=== PATIENT | female | born 1945 | race Caucasian/White ===

== ENCOUNTER 2019-10-21 13:55 | Inpatient (IN) | payer MEDICARE ==
[2019-10-21] MEDS ORDERED: Cefepime 2 GM VIAL ONE (14:32)
[2019-10-21 14:33] LABS: Base Excess-Venous 1.3 mmol/L (-2.0 to 3.0); Bicarbonate (HCO3v) 26.7 mmol/L (22.0-28.0); CO2 Tension (PvCO2) 44.5 mmHg (40.0-50.0); Calcium, Ionized 1.15 mmol/L (See Comments:); Chloride 98 mmol/L (98-107); Hemoglobin - Calc 11.1 g/dL (12.0-16.0); Potassium 4.7 mmol/L (3.5-5.1); Sodium 134 mmol/L (138-145); vO2 Saturation-calc 63.6 % (60.0-85.0)
--- NOTE | 2019-10-21 14:39 | RAD ---
RADIOGRAPH CHEST 1 VIEW: DATE: 10/21/2019 TIME: 2:05 PM HISTORY: 74-year-old female with cough, dyspnea, and wheezing COMPARISON: none FINDINGS: Hyperinflation of lungs. Hyperlucency of upper lobes. Prominent interstitial markings at lower lung z ones, greatest at right base, acute versus chronic. Favor chronic. No cardiomegaly. Left subclavian dual lead pacemaker. No pneumothorax. IMPRESSION: 1) emphysema. 2) increased attenuation at right lower lung zone, chronic versus acute. Favor chronic. 3) pacemaker
[2019-10-21 14:42] LABS: #Eosinphils 0.2 thou/uL (0.0-0.7); #Monocytes 0.6 thou/uL (0.11-0.59); #Neutrophils 6.1 thou/uL (1.40-6.50); %Basophils 0.2 % (0.0-1.0); %Eosinophils 2.7 % (0.0-10.0); %Lymphocytes 22.2 % (21.0-51.0); %Monocytes 6.3 % (0.0-10.0); %Neutrophils 68.6 % (42.0-75.0); Hemoglobin 11.1 g/dL (12.0-16.0); Mean Corpuscular HGB CONC 33.3 g/dL (32.0-36.0); Mean Corpuscular Hemoglobin 33.1 pg (27.0-31.0); Mean Corpuscular Volume 99.3 fL (78.0-98.0); Mean Platelet Volume 7.5 fL (7.4-10.4); Platelet Count 361 thou/uL (130-400); RBC Distribution Width 11.6 % (11.5-14.5); Red Blood Cell (RBC) Count 3.34 mill/uL (4.20-5.40); White Blood Cell (WBC) Count 8.9 thou/uL (4.8-10.8)
[2019-10-21] MEDS ORDERED: Insulin Regular 300 UNITS/3 ML VIAL ONE (15:02)
[2019-10-21] MEDS ORDERED: Vancomycin 1 GM/200 ML BAG ONE (15:02)
[2019-10-21 15:03] LABS: ALT (SGPT) 14 U/L (8-55); AST (SGOT) 13 U/L (5-34); Albumin 3.9 g/dL (3.4-4.8); Alkaline Phosphatase 107 U/L (40-110); Anion Gap 15 mmol/L (10-20); BUN (Urea Nitrogen) 26 mg/dL (9.8-20.1); Bilirubin, Total 0.2 mg/dL (0.2-1.2); Calc. Creatinine Clearance 0 mL/min (70-130); Calcium 9.5 mg/dL (7.8-10.44); Carbon Dioxide 27 mmol/L (23-31); Chloride 98 mmol/L (98-107); Estimated GFR-MDRD 26; Globulin 2.8 g/dL (2.4-3.5); Glucose 539 mg/dL (83-110); Potassium 5.1 mmol/L (3.5-5.1); Protein, Total 6.7 g/dL (6.0-8.3); Sodium 135 mmol/L (136-145)
[2019-10-21] MEDS ORDERED: Senokot S 8.6-50 MG TAB PO PRN (16:03)
[2019-10-21] MEDS ORDERED: Acetaminophen 325 MG TAB PO PRN (16:03)
[2019-10-21] MEDS ORDERED: Dextrose 50% Abboject 50 ML SYRINGE SLOW IVP PRN (16:06)
[2019-10-21] MEDS ORDERED: Dextrose 5% in Water 1,000 ML IV PRN (16:06)
[2019-10-21 16:09] LABS: Bilirubin Negative (Negative); Blood, Urine Negative (Negative); Clarity Clear (Clear); Glucose, Urine (Dipstick) Greater than 1000 mg/dL (Negative); Leukocyte Negative Leu/uL (Negative); Nitrite Negative (Negative); Protein, Urine (Dipstick) Negative (Neg-Trace); Urobilinogen Normal mg/dL (Less than 2)
[2019-10-21] MEDS ORDERED: Azithromycin 500 MG in Sodium Chloride 0.9% 250 ML 250 ML IVPB SCH (18:00)
[2019-10-21 19:36] VITALS: BMI 22.4
--- NOTE | 2019-10-21 21:43 | HP ---
CHIEF COMPLAINT: Shortness of breath. HISTORY OF PRESENT ILLNESS: The patient is a very pleasant 74-year-old female who is from out of town, who presents to the hospital with worsening shortness of breath since Tuesday. The patient states that she normally lives in [place], traveled in September to stay with her daughter for a few months. She stated that Tuesday she started having significant amount of shortness of breath and some coughing. At this time, she went to the urgent care, who gave her some steroids and antibiotics and sent her home. She stated then she came back again on Tuesday morning to the Urgent Care complaining of worsening symptoms. At this time, she was given a steroid inhaler, however, she was unable to fill it. However, today the patient started having significant amount of shortness of breath, cough, and at this time, the patient's daughter initially drove her to the ER; however, while she was driving, her symptoms got so severe that she had stopped by a fire station and was brought in via EMS. The patient states that she has been using 2 L of oxygen only at nighttime. She continues to smoke about half a pack a day. PAST MEDICAL HISTORY: She has a history of hypertension, diabetes, and COPD. PAST SURGICAL HISTORY: She has had a left hip replacement, pacemaker. She has eye surgery. She has a bladder lift and back surgery. SOCIAL HISTORY: She has no alcohol use. Smoking, she smokes half a pack a day. No recreational drug use. ALLERGIES: SHE IS ALLERGIC TO CODEINE. SHE GETS A RASH. FAMILY HISTORY: Mother at age of 49 and father at the age of 69 with heart disease. REVIEW OF SYSTEMS: All negative except for the ones mentioned above. MEDICATIONS: She is on: 1. Carvedilol 12.5 twice a day. 2. Januvia 25 mg daily. 3. Breo inhaler one twice a day. 4. Amlodipine 10 mg daily. 5. Aspirin 81 mg daily. 6. Omeprazole 20 mg daily. 7. Ranitidine 150 mg daily. 8. Torsemide 20 mg daily. 9. Lisinopril 2.5 mg daily. 10. Escitalopram 20 mg daily. 11. Buspirone 10 mg daily. 12. Atorvastatin 40 mg daily. PHYSICAL EXAMINATION: VITAL SIGNS: As of the following; her temperature is 98.6, respirations of 18 to 20, pulse of 100, blood pressure 122/67, 93% on 2 L. GENERAL: She is awake, alert, and oriented x3. Does not appear in distress. HEENT: Normocephalic and atraumatic. No lymphadenopathy noted. Pupils equal and reactive to light. CV: S1 and S2 present. No murmurs, rubs, or gallops. LUNGS: She has some mild expiratory wheezing all over with diminished breath sounds. ABDOMEN: Soft and nontender. Bowel sounds are present x2. EXTREMITIES: She has lower extremity pitting edema. LABORATORY RESULTS: As of the following; WBCs of 8.9, hemoglobin of 11.1, hematocrit of 33.2, platelets of 361. Chemistry; sodium of 134, potassium of 4.7, BUN of 26, creatinine of 1.88. Her sugar was 539. Her BNP was 101.6. She did have a chest x-ray, which stated hyperinflated lungs and increased atelectasis in the right lower lung zone, chronic versus acute I am unable to say and also she has a pacemaker. ASSESSMENT AND PLAN: The patient is a very pleasant 74-year-old female, who presents to the hospital with shortness of breath. 1. Shortness of breath could be possibly secondary to chronic obstructive pulmonary disease exacerbation versus pneumonia. She does not have an elevated white count; however, her symptoms are consistent with possible chronic obstructive pulmonary disease exacerbation. At this time, her flu was negative. We will start her on some ceftriaxone and azithromycin since she was on Levaquin before. I will also start her on some IV steroids and also DuoNeb q.4 hours around the clock. We will continue her home medications. 2. Mild acute kidney injury, unknown previous creatinine. She does not have any history of any kidney disease. We will hydrate her a little bit and check some labs in the morning to see if this improves. 3. Diabetes, uncontrolled. We will put her on sliding scale insulin and continue to monitor. 4. Deep venous thrombosis prophylaxis. We will put the patient on subcu Lovenox. Job ID: [id number]
[2019-10-21] MEDS: Sodium Chloride 0.9% 1,000 ML IV SCH (22:08)
[2019-10-21] MEDS: cefTRIAXone\\ROCEPHIN 1 GM in Sodium Chloride 0.9% 100 ML IVPB SCH (22:12)
[2019-10-21] MEDS: Atorvastatin Calcium 40 MG TAB PO SCH (22:13)
[2019-10-21] MEDS: HumaLOG 300 UNITS/3 ML VIAL SC PRN (22:16)
[2019-10-21] MEDS ORDERED: Melatonin 3 MG TAB PO PRN (22:53)
[2019-10-21] MEDS ORDERED: busPIRone HCl 5 MG TAB PO SCH (23:00)
[2019-10-21] MEDS: Azithromycin 500 MG in Sodium Chloride 0.9% 250 ML 250 ML IVPB SCH (23:27)
[2019-10-22] MEDS: HumaLOG 300 UNITS/3 ML VIAL SC PRN ×3 (04:36→20:30)
[2019-10-22 05:47] LABS: #Lymphocytes 1.1 thou/uL (1.20-3.40); #Monocytes 0.5 thou/uL (0.11-0.59); #Neutrophils 8.1 thou/uL (1.40-6.50); %Basophils 0.2 % (0.0-1.0); %Eosinophils 0.1 % (0.0-10.0); %Lymphocytes 11.1 % (21.0-51.0); %Monocytes 4.8 % (0.0-10.0); %Neutrophils 83.8 % (42.0-75.0); Hemoglobin 10.1 g/dL (12.0-16.0); Mean Corpuscular HGB CONC 33.3 g/dL (32.0-36.0); Mean Corpuscular Hemoglobin 32.9 pg (27.0-31.0); Mean Corpuscular Volume 98.6 fL (78.0-98.0); Mean Platelet Volume 7.5 fL (7.4-10.4); Platelet Count 356 thou/uL (130-400); RBC Distribution Width 11.4 % (11.5-14.5); Red Blood Cell (RBC) Count 3.08 mill/uL (4.20-5.40); White Blood Cell (WBC) Count 9.6 thou/uL (4.8-10.8)
[2019-10-22 06:14] LABS: Anion Gap 11 mmol/L (10-20); BUN (Urea Nitrogen) 25 mg/dL (9.8-20.1); Calc. Creatinine Clearance 33 mL/min (70-130); Calcium 9.1 mg/dL (7.8-10.44); Carbon Dioxide 25 mmol/L (23-31); Chloride 105 mmol/L (98-107); Estimated GFR-MDRD 34; Glucose 270 mg/dL (83-110); Sodium 136 mmol/L (136-145)
[2019-10-22] MEDS ORDERED: methylPREDNISolone Sod Succ 40 MG VIAL IVP SCH (09:00)
[2019-10-22] MEDS ORDERED: busPIRone HCl 10 MG TAB PO SCH (09:00)
[2019-10-22] MEDS: Saccharomyces boulardii 250 MG CAP PO SCH (09:05)
[2019-10-22] MEDS: Enoxaparin Sodium 40 MG/0.4 ML SYRINGE SC SCH (09:06)
[2019-10-22] MEDS: Aspirin 81 mg Enteric Coated Tablet PO SCH (09:06)
[2019-10-22] MEDS: Escitalopram Oxalate 20 mg Tablet PO SCH (09:06)
[2019-10-22] MEDS: busPIRone HCl 5 MG TAB PO SCH ×2 (09:06→20:26)
--- NOTE | 2019-10-22 10:08 | PDOC.HOSPP ---
- Subjective Encounter Date: 10/22/19 Encounter Time: 11:10 Subjective: Patient with SOB and cough, improved some from yesterday. Sating well on 2L NC O2. No other complaints. - Objective Vital Signs & Weight: Vital Signs (12 hours) Temp Pulse Resp BP Pulse Ox 10/22/19 07:41 97.6 F 91 18 133/61 95 10/22/19 06:58 87 16 10/22/19 05:14 98.1 F 89 18 121/61 94 L 10/22/19 02:48 83 16 92 L 10/22/19 00:15 97.9 F 85 20 119/66 92 L 10/21/19 22:44 89 18 94 L Weight Weight 135 lb I&O: 10/21/19 10/22/19 10/23/19 06:59 06:59 06:59 Intake Total 760 Balance 760 Result Diagrams: 10/22/19 05:25 10/22/19 05:25 Additional Labs: Accuchecks 10/21/19 10/21/19 10/21/19 20:06 16:16 15:01 POC Glucose 437 H 451 H 543 H Hospitalist ROS - Review of Systems Constitutional: denies: fever, chills Respiratory: reports: cough, shortness of breath Cardiovascular: denies: chest pain, palpitations, orthopnea Gastrointestinal: denies: nausea, vomiting, abdominal pain - Medication Medications: Active Medications Generic Name Dose Route Start Last Admin Trade Name Freq PRN Reason Stop Dose Admin Acetaminophen 650 mg 10/21/19 16:03 10/22/19 09:12 Tylenol PO 650 mg Q4H PRN Administration Headache/Fever/Mild Pain (1-3) Albuterol/Ipratropium 3 ml 10/21/19 18:30 10/22/19 06:58 Duoneb NEB 3 ml [id number] BONITA Administration Aspirin 81 mg 10/22/19 09:00 10/22/19 09:06 Ecotrin PO 81 mg DAILY BONITA Administration Atorvastatin Calcium 40 mg 10/21/19 21:00 10/21/19 22:13 Lipitor PO 40 mg HS BONITA Administration Buspirone HCl 5 mg 10/22/19 09:00 10/22/19 09:06 Buspar PO 5 mg BID BONITA Administration Enoxaparin Sodium 40 mg 10/22/19 09:00 10/22/19 09:06 Lovenox SC 40 mg 0900 BONITA Administration Escitalopram Oxalate 20 mg 10/22/19 09:00 10/22/19 09:06 Lexapro PO 20 mg DAILY BONITA Administration Sodium Chloride 1,000 mls @ 50 mls/hr 10/21/19 17:00 10/21/19 22:08 Normal Saline 0.9% IV 1,000 mls .Q20H BONITA Administration Ceftriaxone Sodium 1 gm/ 100 mls @ 200 mls/hr 10/21/19 20:00 10/21/19 22:12 Sodium Chloride IVPB 100 mls 2000 BONITA Administration Azithromycin 500 mg/ Sodium 250 mls @ 250 mls/hr 10/21/19 23:00 10/21/19 23: 27 Chloride IVPB 250 mls 2300 BONITA Administration Insulin Human Lispro 0 units 10/21/19 16:06 10/22/19 04:36 Humalog SC 6 unit .MODERATE SLIDING SC PRN Administration Moderate Correctional Scale Melatonin 9 mg 10/21/19 22:53 10/21/19 23:26 Melatonin PO 9 mg HS PRN Administration Insomnia Methylprednisolone Sodium Succinate 40 mg 10/22/19 09:00 10/22/19 09:07 Solu-Medrol IVP 40 mg DAILY BONITA Administration Pantoprazole Sodium 40 mg 10/22/19 09:00 10/22/19 09:05 Protonix PO 40 mg DAILY BONITA Administration Saccharomyces Boulardii 250 mg 10/22/19 09:00 10/22/19 09:05 Florastor PO 250 mg DAILY BONITA Administration - Exam General Appearance: NAD, awake alert ENT: moist mucosa Heart: RRR, no murmur, no gallops, no rubs Respiratory - other findings: poor air movement throughout, no focal findings, productive cough Gastrointestinal: soft, non-tender, non-distended, normal bowel sounds Psychiatric: normal affect, normal behavior Hosp A/P (1) COPD with exacerbation Code(s): J44.1 - CHRONIC OBSTRUCTIVE PULMONARY DISEASE W (ACUTE) EXACERBATION Status: Acute (2) Acute on chronic respiratory failure with hypoxia Code(s): J96.21 - ACUTE AND CHRONIC RESPIRATORY FAILURE WITH HYPOXIA Status: Acute (3) Tobacco abuse Code(s): Z72.0 - TOBACCO USE Status: Acute (4) HTN (hypertension) Code(s): I10 - ESSENTIAL (PRIMARY) HYPERTENSION Status: Chronic (5) Diabetes mellitus type 2 in nonobese Code(s): E11.9 - TYPE 2 DIABETES MELLITUS WITHOUT COMPLICATIONS Status: Chronic - Plan Patient weaned to 1L O2 via NC On steroids, nebs, abx. Creatinine improving some, cont hold JERRY-I and diuretic for now DVT proph: Lovenox
--- NOTE | 2019-10-22 14:43 | PDOC.EVN ---
Event Note - Event Note Event Note: Patient with increased cough and SOB. Sats into 80s, neb given and O2 increased to 3L, still sating 85%. Tachycardic to 120s. XR, ABG, EKG ordered. Switch to facemask O2. Spoke with Dr. Arreola and he will consult on the patient. Concern for mucus plugging. If patient doesn't do well on the O2 facemask will need to transfer to [facility].
[2019-10-22 14:48] LABS: Actual Bicarbonate (HCO3a) 21.8 mEq/L (22-28); Base Excess (BEa) -3.4 mEq/L (-2.0 to +3.0); Calcium, Ionized 1.19 mmol/L (1.12-1.30); Carboxyhemoglobin (COHb) 0.5 gm% (0.0-3.0); Hemoglobin (Hb) 10.8 g/dL (12.0-16.0); O2 Tension (PaO2) 75.7 mmHg (> 70.0); Potassium - ABG Lab 4.75 mmol/L (3.70-5.30); pH, Arterial 7.36 (7.35-7.45)
[2019-10-22 15:08] LABS: Puncture Site RRA
--- NOTE | 2019-10-22 15:13 | RAD ---
XR Chest 1 View Portable HISTORY: Shortness of breath, hypoxia COMPARISON: 11/02/2019 FINDINGS: The heart size is normal. Left-sided Port-A-Cath remains in place. The aorta is tortuous. T he lungs are well expanded without focal areas of consolidation, pneumothorax or pleural effusions. IMPRESSION: No radiographic evidence of acute cardiopulmonary process.
--- NOTE | 2019-10-22 18:27 | CON ---
DATE OF CONSULTATION: 10/22/2019 HISTORY OF PRESENT ILLNESS: Tess Paz is a 74-year-old female, who was admitted with COPD exacerbation. She was smoking until Tuesday. This morning, she had an episode where she was coughing, then could not catch her breath, became very tachypneic and admittedly panicked. She is back near her baseline now. PAST MEDICAL HISTORY: Remarkable for diabetes, hypertension, COPD, left hip replacement, pacemaker, bladder suspension, and back surgery in the past. SOCIAL HISTORY: She smokes half pack a day up until Tuesday. She is not a daily drinker. She does not use drugs. ALLERGIES: REPORTS ALLERGIES TO CODEINE. FAMILY HISTORY: Positive for vascular disease. Negative for lung disease in early age. REVIEW OF SYSTEMS: Review of systems of 10 points is otherwise negative. PHYSICAL EXAMINATION: VITAL SIGNS: She is afebrile, heart rate is 112, respiratory rate is 19, oxymetry is 96% on 3 L, blood pressure 153/70. HEAD AND NECK: Unremarkable. LUNGS: Remarkable for distant breath sounds. Her expiratory phase now is not prolonged, but was earlier per my discussion with Respiratory Therapy. HEART: Regular rhythm. S1 and S2 are normal. ABDOMEN: Soft and nontender. EXTREMITIES: Without clubbing, cyanosis, or edema. NEUROLOGIC: Nonfocal. LABORATORY DATA: White count 9.6 today, hemoglobin 10.1, platelets 356. Electrolytes are normal. BUN 25, creatinine 1.5. Glucose was 543 yesterday. IMPRESSION: Chronic obstructive pulmonary disease exacerbation, probably aggravated by coughing spell, now resolving. Moving her to the intermediate care unit is reasonable. I do not believe she needs BiPAP at this time. I will be happy to follow with the other physicians caring for her. This is a 70 min consult with greater than 50% of time spent on coordination of care. Job ID: [id number] [facility]
[2019-10-22] MEDS: cefTRIAXone\\ROCEPHIN 1 GM in Sodium Chloride 0.9% 100 ML IVPB SCH (20:26)
[2019-10-22] MEDS: Atorvastatin Calcium 40 MG TAB PO SCH (20:26)
[2019-10-22] MEDS: guaiFENesin ER 600 MG TAB PO SCH (20:26)
[2019-10-22] MEDS: Carvedilol 6.25 MG TAB PO SCH (20:26)
[2019-10-22] MEDS: Dicyclomine 10 MG CAP PO SCH (20:27)
[2019-10-22] MEDS ORDERED: Non-Formulary Item 1 EACH (Carvedilol [Carvedilol] 12.5 MG) PO SCH (21:00)
[2019-10-22] MEDS: Sodium Chloride 0.9% 1,000 ML IV SCH (23:09)
[2019-10-22] MEDS: Azithromycin 500 MG in Sodium Chloride 0.9% 250 ML 250 ML IVPB SCH (23:09)
[2019-10-23] MEDS: HumaLOG 300 UNITS/3 ML VIAL SC PRN ×3 (06:04→20:23)
[2019-10-23] MEDS ORDERED: Non-Formulary Item 1 EACH (Ranitidine Hcl [Ranitidine Hcl] 150 MG) PO SCH (09:00)
--- NOTE | 2019-10-23 09:40 | PRG ---
DATE OF SERVICE: 10/23/2019 SUBJECTIVE: Ms. Paz woke up feeling a little more short of breath. She is sitting upright in bed, waiting for nebulizer treatment. OBJECTIVE: VITAL SIGNS: Blood pressure 170/75, heart rate 87, respiratory rates in the 20s, oximetry is 97. LUNGS: Remarkable for faint wheezes with slightly prolonged expiratory phase. HEART: Regular rhythm. ABDOMEN: Soft, nontender. EXTREMITIES: Without edema. No new lab other than glucose today. IMPRESSION: 1. Chronic obstructive pulmonary disease exacerbation, slowly improving. 2. Tobacco use up until Tuesday. 3. Anxiety as expected with her chronic obstructive pulmonary disease exacerbation. PLAN: Continue with nebulizers treatments but we will increase the frequency. We will increase her IV steroids. We will increase her IV fluids as well. Job ID: [id number]
[2019-10-23] MEDS: Sodium Chloride 0.9% 1,000 ML IV SCH ×2 (09:46→18:32)
[2019-10-23] MEDS: busPIRone HCl 5 MG TAB PO SCH ×2 (09:46→20:17)
[2019-10-23] MEDS: Aspirin 81 mg Enteric Coated Tablet PO SCH (09:46)
[2019-10-23] MEDS: Saccharomyces boulardii 250 MG CAP PO SCH (09:46)
[2019-10-23] MEDS: Carvedilol 6.25 MG TAB PO SCH ×2 (09:46→20:17)
[2019-10-23] MEDS: Amlodipine 10 MG TAB PO SCH (09:47)
[2019-10-23] MEDS: guaiFENesin ER 600 MG TAB PO SCH ×2 (09:47→20:17)
[2019-10-23] MEDS: Enoxaparin Sodium 40 MG/0.4 ML SYRINGE SC SCH (09:47)
[2019-10-23] MEDS: Dicyclomine 10 MG CAP PO SCH ×2 (09:47→20:18)
[2019-10-23] MEDS: Famotidine 20 MG TAB PO SCH (09:47)
[2019-10-23] MEDS: Montelukast Sodium 10 mg Tablet PO SCH (09:47)
[2019-10-23] MEDS: Escitalopram Oxalate 20 mg Tablet PO SCH (09:47)
--- NOTE | 2019-10-23 09:47 | PDOC.HOSPP ---
- Subjective Encounter Date: 10/23/19 Encounter Time: 10:40 Subjective: Patient with some worse SOB this AM, better now after increased nebs and steroids. No other complaints. - Objective Vital Signs & Weight: Vital Signs (12 hours) Temp Pulse Resp Pulse Ox 10/23/19 08:00 94 L 10/23/19 07:47 97 10/23/19 07:46 87 23 H 97 10/23/19 07:30 97.8 F 10/23/19 03:35 97.6 F 10/23/19 02:38 83 25 H 94 L 10/22/19 23:37 97.2 F L 10/22/19 22:26 72 27 H 97 Weight Weight 135 lb Most Recent Monitor Data Heart Rate from ECG 94 NIBP 169/76 NIBP BP-Mean 107 Respiration from ECG 23 SpO2 96 I&O: 10/22/19 10/23/19 10/24/19 06:59 06:59 06:59 Intake Total 760 1306 Output Total 500 Balance 760 806 Result Diagrams: 10/22/19 05:25 10/22/19 05:25 Additional Labs: Accuchecks 10/23/19 10/22/19 10/22/19 05:56 20:04 16:52 POC Glucose 198 H 351 H 328 H 10/22/19 10/22/19 11:53 04:33 POC Glucose 274 H 292 H Hospitalist ROS - Review of Systems Constitutional: denies: fever, chills Respiratory: reports: cough, shortness of breath Cardiovascular: denies: chest pain, palpitations Gastrointestinal: denies: nausea, vomiting, abdominal pain - Medication Medications: Active Medications Generic Name Dose Route Start Last Admin Trade Name Freq PRN Reason Stop Dose Admin Acetaminophen 650 mg 10/21/19 16:03 10/22/19 09:12 Tylenol PO 650 mg Q4H PRN Administration Headache/Fever/Mild Pain (1-3) Aspirin 81 mg 10/22/19 09:00 10/22/19 09:06 Ecotrin PO 81 mg DAILY BONITA Administration Atorvastatin Calcium 40 mg 10/21/19 21:00 10/22/19 20:26 Lipitor PO 40 mg HS BONITA Administration Buspirone HCl 5 mg 10/22/19 09:00 10/22/19 20:26 Buspar PO 5 mg BID BONITA Administration Carvedilol 12.5 mg 10/22/19 21:00 10/22/19 20:26 Coreg PO 12.5 mg BID BONITA Administration Dicyclomine HCl 10 mg 10/22/19 21:00 10/22/19 20:27 Bentyl PO 10 mg BID BONITA Administration Enoxaparin Sodium 40 mg 10/22/19 09:00 10/22/19 09:06 Lovenox SC 40 mg 0900 BONITA Administration Escitalopram Oxalate 20 mg 10/22/19 09:00 10/22/19 09:06 Lexapro PO 20 mg DAILY BONITA Administration Guaifenesin 600 mg 10/22/19 21:00 10/22/19 20:26 Mucinex PO 600 mg Q12HR BONITA Administration Ceftriaxone Sodium 1 gm/ 100 mls @ 200 mls/hr 10/21/19 20:00 10/22/19 20:26 Sodium Chloride IVPB 100 mls 2000 BONITA Administration Azithromycin 500 mg/ Sodium 250 mls @ 250 mls/hr 10/21/19 23:00 10/22/19 23: 09 Chloride IVPB 250 mls 2300 BONITA Administration Insulin Human Lispro 0 units 10/21/19 16:06 10/23/19 06:04 Humalog SC 2 unit .MODERATE SLIDING SC PRN Administration Moderate Correctional Scale Melatonin 9 mg 10/21/19 22:53 10/21/19 23:26 Melatonin PO 9 mg HS PRN Administration Insomnia Pantoprazole Sodium 40 mg 10/22/19 09:00 10/22/19 09:05 Protonix PO 40 mg DAILY BONITA Administration Saccharomyces Boulardii 250 mg 10/22/19 09:00 10/22/19 09:05 Florastor PO 250 mg DAILY BONITA Administration - Exam General Appearance: NAD, awake alert ENT: moist mucosa Heart: RRR, no murmur, no gallops, no rubs Respiratory - other findings: poor air movement throughout, mild-mod increased WOB Gastrointestinal: soft, non-tender, non-distended, normal bowel sounds Psychiatric: normal affect, normal behavior Hosp A/P (1) COPD with exacerbation Code(s): J44.1 - CHRONIC OBSTRUCTIVE PULMONARY DISEASE W (ACUTE) EXACERBATION Status: Acute (2) Acute on chronic respiratory failure with hypoxia Code(s): J96.21 - ACUTE AND CHRONIC RESPIRATORY FAILURE WITH HYPOXIA Status: Acute (3) Tobacco abuse Code(s): Z72.0 - TOBACCO USE Status: Acute (4) HTN (hypertension) Code(s): I10 - ESSENTIAL (PRIMARY) HYPERTENSION Status: Chronic (5) Diabetes mellitus type 2 in nonobese Code(s): E11.9 - TYPE 2 DIABETES MELLITUS WITHOUT COMPLICATIONS Status: Chronic - Plan Patient transfered to [facility] for worsening cough/sob/hypoxia 10/22/2019. Dr. Arreola consulted, appreciate his imput. On steroids, nebs, abx. Increasing steroids and IV fluids. More frequent nebs. Creatinine improving some, cont hold JERRY-I and diuretic for now DVT proph: Lovenox
[2019-10-23] MEDS: methylPREDNISolone Sod Succ 40 MG VIAL IVP SCH ×3 (11:47→23:57)
[2019-10-23] MEDS: cefTRIAXone\\ROCEPHIN 1 GM in Sodium Chloride 0.9% 100 ML IVPB SCH (20:17)
[2019-10-23] MEDS: Atorvastatin Calcium 40 MG TAB PO SCH (20:17)
[2019-10-23] MEDS: Azithromycin 500 MG in Sodium Chloride 0.9% 250 ML 250 ML IVPB SCH (23:57)
[2019-10-24 03:51] LABS: #Lymphocytes 0.5 thou/uL (1.20-3.40); #Neutrophils 5.2 thou/uL (1.40-6.50); %Eosinophils 0.2 % (0.0-10.0); %Monocytes 0.7 % (0.0-10.0); Hemoglobin 9.9 g/dL (12.0-16.0); Mean Corpuscular HGB CONC 33.2 g/dL (32.0-36.0); Mean Corpuscular Hemoglobin 33.2 pg (27.0-31.0); Mean Platelet Volume 7.5 fL (7.4-10.4); Platelet Count 358 thou/uL (130-400); RBC Distribution Width 11.2 % (11.5-14.5); Red Blood Cell (RBC) Count 2.97 mill/uL (4.20-5.40); White Blood Cell (WBC) Count 5.7 thou/uL (4.8-10.8)
[2019-10-24 03:52] LABS: Anion Gap 14 mmol/L (10-20); BUN (Urea Nitrogen) 27 mg/dL (9.8-20.1); Calc. Creatinine Clearance 37 mL/min (70-130); Calcium 8.1 mg/dL (7.8-10.44); Carbon Dioxide 21 mmol/L (23-31); Chloride 108 mmol/L (98-107); Estimated GFR-MDRD 40; Glucose 394 mg/dL (83-110); Potassium 5.4 mmol/L (3.5-5.1); Sodium 138 mmol/L (136-145)
[2019-10-24] MEDS: Sodium Chloride 0.9% 1,000 ML IV SCH ×2 (05:28→11:36)
[2019-10-24] MEDS: methylPREDNISolone Sod Succ 40 MG VIAL IVP SCH ×4 (05:29→23:50)
[2019-10-24] MEDS: HumaLOG 300 UNITS/3 ML VIAL SC PRN ×4 (05:32→20:46)
[2019-10-24] MEDS: guaiFENesin ER 600 MG TAB PO SCH ×2 (09:22→20:11)
[2019-10-24] MEDS: busPIRone HCl 5 MG TAB PO SCH ×2 (09:22→20:12)
[2019-10-24] MEDS: Amlodipine 10 MG TAB PO SCH (09:23)
[2019-10-24] MEDS: Carvedilol 6.25 MG TAB PO SCH ×2 (09:23→20:11)
[2019-10-24] MEDS: Famotidine 20 MG TAB PO SCH (09:23)
[2019-10-24] MEDS: Dicyclomine 10 MG CAP PO SCH ×2 (09:24→20:11)
[2019-10-24] MEDS: Montelukast Sodium 10 mg Tablet PO SCH (09:24)
[2019-10-24] MEDS: Saccharomyces boulardii 250 MG CAP PO SCH (09:24)
[2019-10-24] MEDS: Enoxaparin Sodium 40 MG/0.4 ML SYRINGE SC SCH (09:24)
[2019-10-24] MEDS: Aspirin 81 mg Enteric Coated Tablet PO SCH (09:24)
[2019-10-24] MEDS: Escitalopram Oxalate 20 mg Tablet PO SCH (09:24)
--- NOTE | 2019-10-24 10:50 | PDOC.HOSPP ---
- Subjective Encounter Date: 10/24/19 Encounter Time: 11:00 Subjective: Patient in afib with controlled rate earlier, now back in sinus rhythm. No history of previous afib though did have a pacemaker placed. Still with bad coughing fits and SOB. Requiring 4-5L per NC to keep sats up. - Objective Vital Signs & Weight: Vital Signs (12 hours) Temp Pulse Resp BP Pulse Ox 10/24/19 10:14 88 21 H 91 L 10/24/19 09:23 87 152/74 H 10/24/19 09:00 91 L 10/24/19 08:00 98.6 F 90 L 10/24/19 07:17 86 L 10/24/19 07:14 103 H 27 H 85 L 10/24/19 04:00 97.8 F 10/24/19 00:24 99 25 H 85 L 10/23/19 23:42 99.0 F Weight Weight 135 lb Most Recent Monitor Data Heart Rate from ECG 85 NIBP 140/69 NIBP BP-Mean 92 Respiration from ECG 25 SpO2 96 I&O: 10/23/19 10/24/19 10/25/19 06:59 06:59 06:59 Intake Total 1306 3840 Output Total 500 700 Balance 806 3140 Result Diagrams: 10/24/19 03:10 10/24/19 03:10 Additional Labs: Accuchecks 10/24/19 10/24/19 10/23/19 10:36 05:36 20:26 POC Glucose 247 H 406 H 330 H 10/23/19 10/23/19 16:07 10:39 POC Glucose 287 H 169 H Hospitalist ROS - Review of Systems Constitutional: denies: fever, chills Respiratory: reports: cough, shortness of breath Cardiovascular: denies: chest pain, palpitations Gastrointestinal: denies: nausea, vomiting, abdominal pain - Medication Medications: Active Medications Generic Name Dose Route Start Last Admin Trade Name Freq PRN Reason Stop Dose Admin Acetaminophen 650 mg 10/21/19 16:03 10/22/19 09:12 Tylenol PO 650 mg Q4H PRN Administration Headache/Fever/Mild Pain (1-3) Albuterol/Ipratropium 3 ml 10/23/19 10:00 10/24/19 10:14 Duoneb NEB 3 ml [id number] BONITA Administration Amlodipine Besylate 10 mg 10/23/19 09:00 10/24/19 09:23 Norvasc PO 10 mg DAILY BONITA Administration Aspirin 81 mg 10/22/19 09:00 10/24/19 09:24 Ecotrin PO 81 mg DAILY BONITA Administration Atorvastatin Calcium 40 mg 10/21/19 21:00 10/23/19 20:17 Lipitor PO 40 mg HS BONITA Administration Buspirone HCl 5 mg 10/22/19 09:00 10/24/19 09:22 Buspar PO 5 mg BID BONITA Administration Carvedilol 12.5 mg 10/22/19 21:00 10/24/19 09:23 Coreg PO 12.5 mg BID BONITA Administration Dicyclomine HCl 10 mg 10/22/19 21:00 10/24/19 09:24 Bentyl PO 10 mg BID BONITA Administration Enoxaparin Sodium 40 mg 10/22/19 09:00 10/24/19 09:24 Lovenox SC 40 mg 0900 BONITA Administration Escitalopram Oxalate 20 mg 10/22/19 09:00 10/24/19 09:24 Lexapro PO 20 mg DAILY BONITA Administration Famotidine 20 mg 10/23/19 09:00 10/24/19 09:23 Pepcid PO 20 mg DAILY BONITA Administration Guaifenesin 600 mg 10/22/19 21:00 10/24/19 09:22 Mucinex PO 600 mg Q12HR BONITA Administration Ceftriaxone Sodium 1 gm/ 100 mls @ 200 mls/hr 10/21/19 20:00 10/23/19 20:17 Sodium Chloride IVPB 100 mls 2000 BONITA Administration Azithromycin 500 mg/ Sodium 250 mls @ 250 mls/hr 10/21/19 23:00 10/23/19 23: 57 Chloride IVPB 250 mls 2300 BONITA Administration Sodium Chloride 1,000 mls @ 100 mls/hr 10/23/19 08:29 10/24/19 05:28 Normal Saline 0.9% IV 1,000 mls .Q10H BONITA Administration Insulin Human Lispro 0 units 10/21/19 16:06 10/24/19 05:32 Humalog SC 10 unit .MODERATE SLIDING SC PRN Administration Moderate Correctional Scale Melatonin 9 mg 10/21/19 22:53 10/21/19 23:26 Melatonin PO 9 mg HS PRN Administration Insomnia Methylprednisolone Sodium Succinate 40 mg 10/23/19 12:00 10/24/19 05:29 Solu-Medrol IVP 40 mg Q6HR BONITA Administration Montelukast Sodium 10 mg 10/23/19 09:00 10/24/19 09:24 Singulair PO 10 mg DAILY BONITA Administration Pantoprazole Sodium 40 mg 10/22/19 09:00 10/24/19 09:24 Protonix PO 40 mg DAILY BONITA Administration Saccharomyces Boulardii 250 mg 10/22/19 09:00 10/24/19 09:24 Florastor PO 250 mg DAILY BONITA Administration Sodium Chloride 10 ml 10/21/19 18:24 10/24/19 09:22 Flush - Normal Saline IVF 10 ml PRN PRN Administration Saline Flush - Exam General Appearance: NAD, awake alert ENT: moist mucosa Heart: RRR, no murmur, no gallops, no rubs Respiratory: no tachypnea Respiratory - other findings: scattered wheezes, decrease breath sounds throughout Gastrointestinal: soft, non-tender, non-distended, normal bowel sounds Psychiatric: normal affect, normal behavior Hosp A/P (1) COPD with exacerbation Code(s): J44.1 - CHRONIC OBSTRUCTIVE PULMONARY DISEASE W (ACUTE) EXACERBATION Status: Acute (2) Acute on chronic respiratory failure with hypoxia Code(s): J96.21 - ACUTE AND CHRONIC RESPIRATORY FAILURE WITH HYPOXIA Status: Acute (3) Tobacco abuse Code(s): Z72.0 - TOBACCO USE Status: Acute (4) HTN (hypertension) Code(s): I10 - ESSENTIAL (PRIMARY) HYPERTENSION Status: Chronic (5) Diabetes mellitus type 2 in nonobese Code(s): E11.9 - TYPE 2 DIABETES MELLITUS WITHOUT COMPLICATIONS Status: Chronic (6) Hyperkalemia Code(s): E87.5 - HYPERKALEMIA Status: Acute (7) Atrial fibrillation Code(s): I48.91 - UNSPECIFIED ATRIAL FIBRILLATION Status: Acute Qualifiers: Atrial fibrillation type: paroxysmal Qualified Code(s): I48.0 - Paroxysmal atrial fibrillation - Plan Patient transfered to [facility] for worsening cough/sob/hypoxia 10/22/2019. Dr. Arreola consulted, appreciate his imput. On steroids, nebs, abx. Increasing steroids and IV fluids. More frequent nebs. Creatinine improving some, cont hold JERRY-I and diuretic for now Potassium up today. Will decrease potassium in food. Recheck. Not on any supplements currently. Afib on and off. No history. Will check ECHO, EKG during episode, and consult cardiology. May need blood thinners. DVT proph: Lovenox
[2019-10-24] MEDS ORDERED: Insulin Glargine 15 UNITS in Pre-Filled Syringe 1 EACH SC SCH (11:00)
[2019-10-24 15:41] LABS: Potassium 4.7 mmol/L (3.5-5.1)
[2019-10-24] MEDS: cefTRIAXone\\ROCEPHIN 1 GM in Sodium Chloride 0.9% 100 ML IVPB SCH (20:10)
[2019-10-24] MEDS: Atorvastatin Calcium 40 MG TAB PO SCH (20:11)
[2019-10-24] MEDS: Azithromycin 500 MG in Sodium Chloride 0.9% 250 ML 250 ML IVPB SCH (23:50)
[2019-10-25] MEDS: Sodium Chloride 0.9% 1,000 ML IV SCH ×3 (03:51→20:17)
[2019-10-25 04:14] LABS: Anion Gap 11 mmol/L (10-20); BUN (Urea Nitrogen) 24 mg/dL (9.8-20.1); Calc. Creatinine Clearance 43 mL/min (70-130); Calcium 8.5 mg/dL (7.8-10.44); Carbon Dioxide 23 mmol/L (23-31); Chloride 110 mmol/L (98-107); Estimated GFR-MDRD 46; Glucose 293 mg/dL (83-110); Potassium 4.8 mmol/L (3.5-5.1); Sodium 139 mmol/L (136-145)
[2019-10-25] MEDS: methylPREDNISolone Sod Succ 40 MG VIAL IVP SCH ×4 (05:48→23:33)
[2019-10-25] MEDS: HumaLOG 300 UNITS/3 ML VIAL SC PRN ×4 (05:48→20:25)
[2019-10-25] MEDS: Enoxaparin Sodium 40 MG/0.4 ML SYRINGE SC SCH (09:12)
[2019-10-25] MEDS: Carvedilol 6.25 MG TAB PO SCH ×2 (09:13→20:18)
[2019-10-25] MEDS: Saccharomyces boulardii 250 MG CAP PO SCH (09:13)
[2019-10-25] MEDS: Amlodipine 10 MG TAB PO SCH (09:13)
[2019-10-25] MEDS: guaiFENesin ER 600 MG TAB PO SCH ×2 (09:14→20:19)
[2019-10-25] MEDS: Aspirin 81 mg Enteric Coated Tablet PO SCH (09:14)
[2019-10-25] MEDS: Escitalopram Oxalate 20 mg Tablet PO SCH (09:14)
[2019-10-25] MEDS: Montelukast Sodium 10 mg Tablet PO SCH (09:14)
[2019-10-25] MEDS: Famotidine 20 MG TAB PO SCH (09:14)
[2019-10-25] MEDS: busPIRone HCl 5 MG TAB PO SCH ×2 (09:14→20:19)
[2019-10-25] MEDS: Dicyclomine 10 MG CAP PO SCH ×2 (09:15→20:24)
--- NOTE | 2019-10-25 09:18 | PDOC.HOSPP ---
- Subjective Encounter Date: 10/25/19 Encounter Time: 10:30 Subjective: Continued cough, SOB. Slowly improving. No fever. - Objective Vital Signs & Weight: Vital Signs (12 hours) Temp Pulse Resp BP Pulse Ox 10/25/19 09:13 96 140/72 10/25/19 07:38 91 L 10/25/19 07:36 76 19 91 L 10/25/19 07:34 98.4 F 10/25/19 03:45 97.6 F 10/25/19 03:38 76 24 H 96 10/25/19 00:15 77 26 H 91 L 10/24/19 23:10 97.8 F 10/24/19 21:41 67 26 H 92 L Weight Weight 135 lb Most Recent Monitor Data Heart Rate from ECG 69 NIBP 140/64 NIBP BP-Mean 89 Respiration from ECG 19 SpO2 92 I&O: 10/24/19 10/25/19 10/26/19 06:59 06:59 06:59 Intake Total 3840 3562 Output Total 700 1000 Balance 3140 2562 Result Diagrams: 10/24/19 03:10 10/25/19 02:59 Additional Labs: Accuchecks 10/25/19 10/24/19 10/24/19 05:34 20:30 10:36 POC Glucose 287 H 243 H 247 H Hospitalist ROS - Review of Systems Constitutional: denies: fever, chills Respiratory: reports: cough, shortness of breath Cardiovascular: denies: chest pain, palpitations, orthopnea Gastrointestinal: denies: nausea, vomiting, abdominal pain - Medication Medications: Active Medications Generic Name Dose Route Start Last Admin Trade Name Freq PRN Reason Stop Dose Admin Acetaminophen 650 mg 10/21/19 16:03 10/22/19 09:12 Tylenol PO 650 mg Q4H PRN Administration Headache/Fever/Mild Pain (1-3) Albuterol/Ipratropium 3 ml 10/23/19 10:00 10/25/19 07:36 Duoneb NEB 3 ml [id number] BONITA Administration Amlodipine Besylate 10 mg 10/23/19 09:00 10/25/19 09:13 Norvasc PO 10 mg DAILY BONITA Administration Aspirin 81 mg 10/22/19 09:00 10/25/19 09:14 Ecotrin PO 81 mg DAILY BONITA Administration Atorvastatin Calcium 40 mg 10/21/19 21:00 10/24/19 20:11 Lipitor PO 40 mg HS BONITA Administration Buspirone HCl 5 mg 10/22/19 09:00 10/25/19 09:14 Buspar PO 5 mg BID BONITA Administration Carvedilol 12.5 mg 10/22/19 21:00 10/25/19 09:13 Coreg PO 12.5 mg BID BONITA Administration Dicyclomine HCl 10 mg 10/22/19 21:00 10/25/19 09:15 Bentyl PO 10 mg BID BONITA Administration Enoxaparin Sodium 40 mg 10/22/19 09:00 10/25/19 09:12 Lovenox SC 40 mg 0900 BONITA Administration Escitalopram Oxalate 20 mg 10/22/19 09:00 10/25/19 09:14 Lexapro PO 20 mg DAILY BONITA Administration Famotidine 20 mg 10/23/19 09:00 10/25/19 09:14 Pepcid PO 20 mg DAILY BONITA Administration Guaifenesin 600 mg 10/22/19 21:00 10/25/19 09:14 Mucinex PO 600 mg Q12HR BONITA Administration Ceftriaxone Sodium 1 gm/ 100 mls @ 200 mls/hr 10/21/19 20:00 10/24/19 20:10 Sodium Chloride IVPB 100 mls 2000 BONITA Administration Azithromycin 500 mg/ Sodium 250 mls @ 250 mls/hr 10/21/19 23:00 10/24/19 23: 50 Chloride IVPB 250 mls 2300 BONITA Administration Sodium Chloride 1,000 mls @ 100 mls/hr 10/23/19 08:29 10/25/19 09:11 Normal Saline 0.9% IV 1,000 mls .Q10H BONITA Administration Insulin Human Lispro 0 units 10/21/19 16:06 10/25/19 05:48 Humalog SC 6 unit .MODERATE SLIDING SC PRN Administration Moderate Correctional Scale Melatonin 9 mg 10/21/19 22:53 10/21/19 23:26 Melatonin PO 9 mg HS PRN Administration Insomnia Methylprednisolone Sodium Succinate 40 mg 10/23/19 12:00 10/25/19 05:48 Solu-Medrol IVP 40 mg Q6HR BONTIA Administration Montelukast Sodium 10 mg 10/23/19 09:00 10/25/19 09:14 Singulair PO 10 mg DAILY BONITA Administration Pantoprazole Sodium 40 mg 10/22/19 09:00 10/25/19 09:14 Protonix PO 40 mg DAILY BONITA Administration Saccharomyces Boulardii 250 mg 10/22/19 09:00 10/25/19 09:13 Florastor PO 250 mg DAILY BONITA Administration Senna/Docusate Sodium 2 tab 10/21/19 16:03 10/24/19 11:35 Senokot S PO 2 tab BIDPRN PRN Administration Constipation Sodium Chloride 10 ml 10/21/19 18:24 10/25/19 09:12 Flush - Normal Saline IVF 10 ml PRN PRN Administration Saline Flush - Exam General Appearance: NAD, awake alert ENT: moist mucosa Heart: RRR, no murmur, no gallops, no rubs Respiratory - other findings: occ wheeze, breath sounds a bit better today Gastrointestinal: soft, non-tender, non-distended, normal bowel sounds Psychiatric: normal affect, normal behavior, A&O x 3 Hosp A/P (1) COPD with exacerbation Code(s): J44.1 - CHRONIC OBSTRUCTIVE PULMONARY DISEASE W (ACUTE) EXACERBATION Status: Acute (2) Acute on chronic respiratory failure with hypoxia Code(s): J96.21 - ACUTE AND CHRONIC RESPIRATORY FAILURE WITH HYPOXIA Status: Acute (3) Tobacco abuse Code(s): Z72.0 - TOBACCO USE Status: Acute (4) HTN (hypertension) Code(s): I10 - ESSENTIAL (PRIMARY) HYPERTENSION Status: Chronic (5) Diabetes mellitus type 2 in nonobese Code(s): E11.9 - TYPE 2 DIABETES MELLITUS WITHOUT COMPLICATIONS Status: Chronic (6) Hyperkalemia Code(s): E87.5 - HYPERKALEMIA Status: Acute (7) Atrial fibrillation Code(s): I48.91 - UNSPECIFIED ATRIAL FIBRILLATION Status: Acute Qualifiers: Atrial fibrillation type: paroxysmal Qualified Code(s): I48.0 - Paroxysmal atrial fibrillation - Plan Patient transfered to [facility] for worsening cough/sob/hypoxia 10/22/2019. Dr. Arreola consulted, appreciate his imput. On steroids, nebs, abx. Increasing steroids and IV fluids. More frequent nebs. Creatinine improving some, cont hold JERRY-I and diuretic for now Potassium normalized. Afib on and off on monitor. No history. EKG currently showing sinus with [facility] PACs. Will check ECHO, consult cardiology. May need blood thinners. DVT proph: Lovenox
[2019-10-25] MEDS: Insulin Glargine 15 UNITS in Pre-Filled Syringe 1 EACH SC SCH (09:51)
--- NOTE | 2019-10-25 10:55 | PRG ---
DATE OF SERVICE: 10/24/2019 SUBJECTIVE: Tess Paz has had no more severe episodes of shortness of breath associated with coughing. She says she is feeling a little better today. OBJECTIVE: VITAL SIGNS: She is afebrile, heart rates in the 70s, blood pressure , respiratory rate . LUNGS: Remarkable for distant wheezes. HEART: Regular rhythm. ABDOMEN: Soft. LABORATORY DATA: White count 5.7, hemoglobin 9.9, platelets . Sodium 138, potassium 5.4, chloride . Bicarbonate , creatinine , glucose . IMPRESSION: Chronic obstructive pulmonary disease exacerbation, slowly improving. Continue current care. Job ID: [id number]
--- NOTE | 2019-10-25 12:08 | PRG ---
DATE OF SERVICE: 10/25/2019 SUBJECTIVE: Tess Paz had one of her episodes this morning when she awakened , where she became short of breath during nebulizer treatment. The episode was brief. She desaturated and then coughed for a period of time and then gradually improved. She was fine when I saw her on rounds. OBJECTIVE: VITAL SIGNS: She is afebrile, heart rate 73, respiratory rate 19, oximetry is 91% on a nasal cannula at 5 L. LUNGS: Remarkable for distant breath sounds with end-expiratory wheezes. HEART: Regular rhythm. ABDOMEN: Soft. EXTREMITIES: Without edema. LABORATORY DATA: Sodium 139, potassium 4.8, chloride 110, bicarb 23, BUN 24, creatinine 1.15, glucose 293. IMPRESSION: 1. Chronic obstructive pulmonary disease exacerbation, slowly improving. 2. Diabetes. 3. Deconditioning. PLAN: Continue current care. She probably needs to stay in the intermediate care unit for now. Job ID: [id number] MTDD
[2019-10-25] MEDS: cefTRIAXone\\ROCEPHIN 1 GM in Sodium Chloride 0.9% 100 ML IVPB SCH (20:17)
[2019-10-25] MEDS: Atorvastatin Calcium 40 MG TAB PO SCH (20:19)
--- NOTE | 2019-10-25 22:19 | CON ---
DATE OF CONSULTATION: HISTORY OF PRESENT ILLNESS: Tess Paz is a 74-year-old white female, who 3 or 4 years ago had a syncopal episode, followed by pacemaker placement. She has not had any recurrent syncope. She now is admitted with COPD exacerbation with increased coughing. On the monitor, she had an irregular heartbeat. A cardiology consultation was requested. The patient denies any palpitations or chest pain. PAST MEDICAL HISTORY: 1. Hypertension. 2. COPD. 3. Diabetes. 4. Hypercholesterolemia. PAST SURGICAL HISTORY: 1. Back surgery. 2. Dual-chamber pacemaker placement (Medtronic). 3. Left hip replacement. 4. Bladder suspension. MEDICATIONS: 1. Albuterol 2 puffs q.4 hours. 2. Amlodipine 10 mg daily. 3. Aspirin 81 daily. 4. Atorvastatin 40 daily. 5. BuSpar 5 mg b.i.d. 6. Carvedilol 12.5 b.i.d. 7. Bentyl 10 mg b.i.d. 8. Lisinopril 2.5 mg daily. 9. Melatonin 10 mg at bedtime. 10. Omeprazole 20 b.i.d. 11. Ranitidine 150 daily. 12. Torsemide 20 daily. ALLERGIES: CODEINE. SOCIAL HISTORY: She smokes one half pack per day. She occasionally drinks alcohol. FAMILY HISTORY: Father had myocardial infarction. REVIEW OF SYSTEMS: A 10-point review of systems is otherwise unremarkable. PHYSICAL EXAMINATION: VITAL SIGNS: Blood pressure 153/73, pulse 94, sinus rhythm on the monitor. HEENT: PERRL. NECK: Supple. CHEST: Reveals distant breath sounds. CARDIOVASCULAR: S1 and S2 normal without any S3, S4, or murmurs. Carotid upstrokes normal without bruits. ABDOMEN: Normal bowel sounds without tenderness or organomegaly. EXTREMITIES: Revealed no clubbing, cyanosis, or edema. NEUROLOGIC: Grossly intact. SKIN: Warm and dry. IMAGING: EKG revealed sinus rhythm with PACs, poor R-wave progression. The rhythm strip that is labeled atrial fibrillation has P-waves before QRSs with somewhat of a sinus arrhythmia, but this is not atrial fibrillation. Echocardiogram revealed ejection fraction of 55% to 60% with lioj-[id number] mitral regurgitation, pvxutzhv-lo-brwnvy tricuspid regurgitation and elevated pulmonary artery pressures. LABORATORY DATA: Hemoglobin 9.9, hematocrit 29.7, white count 5700, platelets 358. Sodium 139, potassium 4.8, chloride 110, carbon dioxide 23, BUN 24, creatinine 1.15, which is improved from 1.88 at admission. BNP 101.6. IMPRESSION: 1. Sinus arrhythmia and sinus rhythm with paroxysmal atrial contractions, no evidence of atrial fibrillation. 2. Chronic obstructive pulmonary disease exacerbation. 3. History of dual-chamber Medtronic pacemaker placement 3 to 4 years ago in [place] for an episode of syncope. 4. Hypertension. 5. Hyperlipidemia. 6. Smoker. 7. Positive family history. 8. Diabetes. Plan. I do not see any evidence of atrial fibrillation. I will have her pacemaker interrogated to see, if there are any recorded arrhythmias on the pacemaker. Job ID: [id number] MTDD
[2019-10-25] MEDS: Azithromycin 500 MG in Sodium Chloride 0.9% 250 ML 250 ML IVPB SCH (23:33)
[2019-10-25] MEDS: Bacteriostatic Water 30 ML VIAL FS PRN (23:34)
[2019-10-26] MEDS: Bacteriostatic Water 30 ML VIAL FS PRN (05:16)
[2019-10-26] MEDS: methylPREDNISolone Sod Succ 40 MG VIAL IVP SCH ×4 (05:16→23:41)
[2019-10-26] MEDS: HumaLOG 300 UNITS/3 ML VIAL SC PRN ×4 (06:12→20:28)
[2019-10-26] MEDS: Montelukast Sodium 10 mg Tablet PO SCH (08:59)
[2019-10-26] MEDS: Carvedilol 6.25 MG TAB PO SCH (08:59)
[2019-10-26] MEDS: Saccharomyces boulardii 250 MG CAP PO SCH (08:59)
[2019-10-26] MEDS: Aspirin 81 mg Enteric Coated Tablet PO SCH (08:59)
[2019-10-26] MEDS: busPIRone HCl 5 MG TAB PO SCH ×2 (08:59→20:25)
[2019-10-26] MEDS: guaiFENesin ER 600 MG TAB PO SCH ×2 (09:00→20:25)
[2019-10-26] MEDS: Escitalopram Oxalate 20 mg Tablet PO SCH (09:00)
[2019-10-26] MEDS: Amlodipine 10 MG TAB PO SCH (09:00)
[2019-10-26] MEDS: Enoxaparin Sodium 40 MG/0.4 ML SYRINGE SC SCH (09:01)
[2019-10-26] MEDS: Famotidine 20 MG TAB PO SCH (09:01)
[2019-10-26] MEDS: Insulin Glargine 15 UNITS in Pre-Filled Syringe 1 EACH SC SCH (09:02)
[2019-10-26] MEDS: Dicyclomine 10 MG CAP PO SCH ×2 (09:04→20:25)
[2019-10-26] MEDS: Sodium Chloride 0.9% 1,000 ML IV SCH ×3 (11:34→22:32)
[2019-10-26 11:50] LABS: #Lymphocytes 0.8 thou/uL (1.20-3.40); #Monocytes 0.4 thou/uL (0.11-0.59); #Neutrophils 9.2 thou/uL (1.40-6.50); %Basophils 0.2 % (0.0-1.0); %Eosinophils 0.2 % (0.0-10.0); %Lymphocytes 7.6 % (21.0-51.0); %Monocytes 3.7 % (0.0-10.0); %Neutrophils 88.2 % (42.0-75.0); Hemoglobin 10.2 g/dL (12.0-16.0); Mean Corpuscular HGB CONC 33.2 g/dL (32.0-36.0); Mean Corpuscular Hemoglobin 33.1 pg (27.0-31.0); Mean Corpuscular Volume 99.5 fL (78.0-98.0); Mean Platelet Volume 6.6 fL (7.4-10.4); Platelet Count 421 thou/uL (130-400); RBC Distribution Width 11.5 % (11.5-14.5); Red Blood Cell (RBC) Count 3.08 mill/uL (4.20-5.40); White Blood Cell (WBC) Count 10.4 thou/uL (4.8-10.8)
[2019-10-26 12:08] LABS: Anion Gap 10 mmol/L (10-20); BUN (Urea Nitrogen) 25 mg/dL (9.8-20.1); Calc. Creatinine Clearance 48 mL/min (70-130); Calcium 8.8 mg/dL (7.8-10.44); Carbon Dioxide 25 mmol/L (23-31); Chloride 108 mmol/L (98-107); Estimated GFR-MDRD 47; Glucose 270 mg/dL (83-110); Potassium 4.7 mmol/L (3.5-5.1); Sodium 138 mmol/L (136-145)
--- NOTE | 2019-10-26 17:53 | PDOC.HOSPP ---
- Subjective Encounter Date: 10/26/19 Encounter Time: 09:40 Subjective: Pt seen for followup re: COPD exacerbation. States she feels better. - Objective Vital Signs & Weight: Vital Signs (12 hours) Temp Pulse Resp BP Pulse Ox 10/26/19 16:00 97.8 F 10/26/19 15:59 92 20 95 10/26/19 13:39 99 28 H 91 L 10/26/19 12:00 98.0 F 10/26/19 10:25 80 23 H 93 L 10/26/19 09:00 107 H 147/94 H 10/26/19 08:59 142/69 H 10/26/19 08:00 90 L 10/26/19 07:52 97.8 F 10/26/19 07:41 93 L 10/26/19 07:39 89 21 H 93 L Weight Weight 150 lb 9.6 oz Most Recent Monitor Data Heart Rate from ECG 69 NIBP 140/65 NIBP BP-Mean 90 Respiration from ECG 22 SpO2 99 I&O: 10/25/19 10/26/19 10/27/19 06:59 06:59 06:59 Intake Total 3562 3837 Output Total 1000 2625 Balance 2562 1212 Result Diagrams: 10/26/19 11:32 10/26/19 11:32 Additional Labs: Accuchecks 10/26/19 10/26/19 10/26/19 17:13 11:30 06:16 POC Glucose 252 H 285 H 244 H 10/25/19 10/25/19 10/24/19 20:20 11:04 16:45 POC Glucose 286 H 247 H 291 H Labs and MARs reviewed by me EKG Reviewed by me: Yes (Tele: NSR) Hospitalist ROS - Review of Systems Respiratory: reports: cough, dry, SOB with excertion. denies: shortness of breath, hemoptysis, pleuritic pain, sputum, wheezing Cardiovascular: denies: chest pain, palpitations, orthopnea, paroxysmal noc. dyspnea, edema, light headedness - Medication Medications: Active Medications Generic Name Dose Route Start Last Admin Trade Name Freq PRN Reason Stop Dose Admin Acetaminophen 650 mg 10/21/19 16:03 10/22/19 09:12 Tylenol PO 650 mg Q4H PRN Administration Headache/Fever/Mild Pain (1-3) Albuterol/Ipratropium 3 ml 10/23/19 10:00 10/26/19 15:59 Duoneb NEB 3 ml [id number] BONITA Administration Amlodipine Besylate 10 mg 10/23/19 09:00 10/26/19 09:00 Norvasc PO 10 mg DAILY BONITA Administration Aspirin 81 mg 10/22/19 09:00 10/26/19 08:59 Ecotrin PO 81 mg DAILY BONITA Administration Atorvastatin Calcium 40 mg 10/21/19 21:00 10/25/19 20:19 Lipitor PO 40 mg HS BONITA Administration Buspirone HCl 5 mg 10/22/19 09:00 10/26/19 08:59 Buspar PO 5 mg BID BONITA Administration Carvedilol 12.5 mg 10/22/19 21:00 10/26/19 08:59 Coreg PO 12.5 mg BID BONITA Administration Dicyclomine HCl 10 mg 10/22/19 21:00 10/26/19 09:04 Bentyl PO 10 mg BID BONITA Administration Enoxaparin Sodium 40 mg 10/22/19 09:00 10/26/19 09:01 Lovenox SC 40 mg 0900 BONITA Administration Escitalopram Oxalate 20 mg 10/22/19 09:00 10/26/19 09:00 Lexapro PO 20 mg DAILY BNOITA Administration Famotidine 20 mg 10/23/19 09:00 10/26/19 09:01 Pepcid PO 20 mg DAILY BONITA Administration Guaifenesin 600 mg 10/22/19 21:00 10/26/19 09:00 Mucinex PO 600 mg Q12HR BONITA Administration Ceftriaxone Sodium 1 gm/ 100 mls @ 200 mls/hr 10/21/19 20:00 10/25/19 20:17 Sodium Chloride IVPB 100 mls 2000 BONITA Administration Azithromycin 500 mg/ Sodium 250 mls @ 250 mls/hr 10/21/19 23:00 10/25/19 23: 33 Chloride IVPB 250 mls 2300 BONITA Administration Sodium Chloride 1,000 mls @ 100 mls/hr 10/23/19 08:29 10/26/19 17:21 Normal Saline 0.9% IV 1,000 mls .Q10H BONITA Administration Insulin Glargine 15 units/ 0.15 mls @ 0 mls/hr 10/25/19 09:00 10/26/19 09:02 Miscellaneous Medication SC 0.15 mls QAM BONITA Administration Insulin Human Lispro 0 units 10/21/19 16:06 10/26/19 17:22 Humalog SC 6 unit .MODERATE SLIDING SC PRN Administration Moderate Correctional Scale Melatonin 9 mg 10/21/19 22:53 10/21/19 23:26 Melatonin PO 9 mg HS PRN Administration Insomnia Methylprednisolone Sodium Succinate 40 mg 10/23/19 12:00 10/26/19 17:23 Solu-Medrol IVP 40 mg Q6HR BONITA Administration Montelukast Sodium 10 mg 10/23/19 09:00 10/26/19 08:59 Singulair PO 10 mg DAILY BONITA Administration Pantoprazole Sodium 40 mg 10/22/19 09:00 10/26/19 09:01 Protonix PO 40 mg DAILY BONITA Administration Saccharomyces Boulardii 250 mg 10/22/19 09:00 10/26/19 08:59 Florastor PO 250 mg DAILY BONITA Administration Senna/Docusate Sodium 2 tab 10/21/19 16:03 10/24/19 11:35 Senokot S PO 2 tab BIDPRN PRN Administration Constipation Sodium Chloride 10 ml 10/21/19 18:24 10/25/19 09:12 Flush - Normal Saline IVF 10 ml PRN PRN Administration Saline Flush Sterile Water 1 ml 10/23/19 08:54 10/26/19 05:16 Bacteriostatic Water FS 1 ml PRN PRN Administration RECONSTITUTION - Exam General Appearance: awake alert Eye: anicteric sclera ENT: moist mucosa Neck: supple Heart: RRR, no rubs Respiratory: CTAB Gastrointestinal: soft, non-tender, non-distended Skin: no rashes Psychiatric: normal affect, normal behavior Hosp A/P - Plan - Assessment (1) COPD with exacerbation Code(s): J44.1 - CHRONIC OBSTRUCTIVE PULMONARY DISEASE W (ACUTE) EXACERBATION Status: Acute (2) Acute on chronic respiratory failure with hypoxia Code(s): J96.21 - ACUTE AND CHRONIC RESPIRATORY FAILURE WITH HYPOXIA Status: Acute (3) HTN (hypertension) Code(s): I10 - ESSENTIAL (PRIMARY) HYPERTENSION Status: Chronic (4) Diabetes mellitus type 2 in nonobese Code(s): E11.9 - TYPE 2 DIABETES MELLITUS WITHOUT COMPLICATIONS Status: Chronic (3) Tobacco abuse Code(s): Z72.0 - TOBACCO USE Status: Chronic (6) Hyperkalemia Code(s): E87.5 - HYPERKALEMIA Status: Resolved (7) Atrial fibrillation Code(s): I48.91 - UNSPECIFIED ATRIAL FIBRILLATION Status: Ruled out Qualifiers: Atrial fibrillation type: paroxysmal Qualified Code(s): I48.0 - Paroxysmal atrial fibrillation (8) Acute kidney injury Status: Acute - Plan Pt clinically improving. Continue oxygen, steroids and bronchodilators. SISSY improving some, ACEI on hold No evidence of a. fib, per cardiology service. Await PPM interrogation.
--- NOTE | 2019-10-26 19:34 | PRG ---
DATE OF SERVICE: 10/26/2019 SUBJECTIVE: Tess Paz had a great night and a good morning. She actually went out and walked in the [place] today. OBJECTIVE: VITAL SIGNS: Heart rates in the 80s, respiratory rate is 20, oximetry when I was in the room was in the mid 90s on 3 L, turned down to 2 L a minute. LUNGS: Remarkable only for end-expiratory wheezes. HEART: Regular rhythm. ABDOMEN: Soft. IMPRESSION: Chronic obstructive pulmonary disease exacerbation, finally clinically improving. I do not feel she needs IV antimicrobial therapy and probably just needs a short course of p.o. antimicrobial therapy given that she has had several days of IV antibiotics. I believe her steroid dosing can be decreased. She may be a candidate for discharge in 24 to 48 hours. A lot depends on how she does tonight and how she looks in the morning. We will continue to wean down her oxygen. Job ID: [id number]
[2019-10-26] MEDS: Atorvastatin Calcium 40 MG TAB PO SCH (20:25)
[2019-10-27 03:37] LABS: #Lymphocytes 0.7 thou/uL (1.20-3.40); #Monocytes 0.3 thou/uL (0.11-0.59); %Basophils 0.1 % (0.0-1.0); %Eosinophils 0.2 % (0.0-10.0); %Lymphocytes 7.9 % (21.0-51.0); %Monocytes 3.5 % (0.0-10.0); %Neutrophils 88.2 % (42.0-75.0); Hemoglobin 10.2 g/dL (12.0-16.0); Mean Corpuscular HGB CONC 33.3 g/dL (32.0-36.0); Mean Corpuscular Hemoglobin 32.6 pg (27.0-31.0); Mean Platelet Volume 6.9 fL (7.4-10.4); Platelet Count 450 thou/uL (130-400); RBC Distribution Width 11.5 % (11.5-14.5); Red Blood Cell (RBC) Count 3.12 mill/uL (4.20-5.40); White Blood Cell (WBC) Count 9.1 thou/uL (4.8-10.8)
[2019-10-27 04:03] LABS: Anion Gap 12 mmol/L (10-20); BUN (Urea Nitrogen) 23 mg/dL (9.8-20.1); Calc. Creatinine Clearance 55 mL/min (70-130); Calcium 8.7 mg/dL (7.8-10.44); Carbon Dioxide 22 mmol/L (23-31); Chloride 110 mmol/L (98-107); Estimated GFR-MDRD 55; Glucose 148 mg/dL (83-110); Potassium 4.3 mmol/L (3.5-5.1); Sodium 140 mmol/L (136-145)
[2019-10-27] MEDS: methylPREDNISolone Sod Succ 40 MG VIAL IVP SCH ×3 (05:09→17:24)
[2019-10-27] MEDS: HumaLOG 300 UNITS/3 ML VIAL SC PRN ×4 (06:01→20:30)
[2019-10-27] MEDS ORDERED: Carvedilol 25 MG TAB PO SCH (08:00)
[2019-10-27] MEDS: Dicyclomine 10 MG CAP PO SCH ×2 (09:33→20:29)
[2019-10-27] MEDS: busPIRone HCl 5 MG TAB PO SCH ×2 (09:34→20:29)
[2019-10-27] MEDS: Aspirin 81 mg Enteric Coated Tablet PO SCH (09:34)
[2019-10-27] MEDS: Carvedilol 6.25 MG TAB PO SCH ×2 (09:34→17:24)
[2019-10-27] MEDS: Saccharomyces boulardii 250 MG CAP PO SCH (09:35)
[2019-10-27] MEDS: Amlodipine 10 MG TAB PO SCH (09:35)
[2019-10-27] MEDS: Montelukast Sodium 10 mg Tablet PO SCH (09:35)
[2019-10-27] MEDS: Enoxaparin Sodium 40 MG/0.4 ML SYRINGE SC SCH (09:35)
[2019-10-27] MEDS: Insulin Glargine 15 UNITS in Pre-Filled Syringe 1 EACH SC SCH (09:36)
[2019-10-27] MEDS: Famotidine 20 MG TAB PO SCH (09:36)
[2019-10-27] MEDS: guaiFENesin ER 600 MG TAB PO SCH ×2 (09:36→20:29)
[2019-10-27] MEDS: Escitalopram Oxalate 20 mg Tablet PO SCH (09:36)
--- NOTE | 2019-10-27 16:59 | PDOC.HOSPP ---
- Subjective Encounter Date: 10/27/19 Encounter Time: 10:20 Subjective: Pt seen foir followup re: COPD exacerbation. Feels better. - Objective Vital Signs & Weight: Vital Signs (12 hours) Temp Pulse Pulse Pulse Resp BP BP 10/27/19 15:59 98.2 F 10/27/19 14:30 102 H 80 163/90 H 10/27/19 14:08 89 28 H 10/27/19 12:23 97.3 F L 10/27/19 11:02 84 22 H 10/27/19 09:35 87 160/78 H 10/27/19 09:34 147/94 H 10/27/19 08:00 10/27/19 07:28 98.1 F 10/27/19 07:02 87 24 H BP Pulse Ox 10/27/19 15:59 10/27/19 14:30 141/67 H 10/27/19 14:08 92 L 10/27/19 12:23 10/27/19 11:02 94 L 10/27/19 09:35 10/27/19 09:34 10/27/19 08:00 95 10/27/19 07:28 10/27/19 07:02 92 L Weight Weight 148 lb 9.6 oz Most Recent Monitor Data Heart Rate from ECG 86 NIBP 168/77 NIBP BP-Mean 107 Respiration from ECG 23 SpO2 91 I&O: 10/26/19 10/27/19 10/28/19 06:59 06:59 06:59 Intake Total 3837 3464 Output Total 2625 2475 800 Balance 1212 989 -800 Result Diagrams: 10/27/19 03:09 10/27/19 03:09 Additional Labs: Accuchecks 10/27/19 10/27/19 10/27/19 16:12 11:26 05:18 POC Glucose 201 H 238 H 190 H 10/26/19 10/26/19 10/26/19 20:52 20:31 17:13 POC Glucose 312 H 287 H 252 H Labs and MARs reviewed by me EKG Reviewed by me: Yes (Tele: NSR) Hospitalist ROS - Review of Systems Respiratory: reports: SOB with excertion Cardiovascular: denies: chest pain, palpitations, orthopnea, paroxysmal noc. dyspnea, edema, light headedness, other Musculoskeletal: denies: neck pain, shoulder pain, arm pain, back pain, hand pain, leg pain, foot pain - Medication Medications: Active Medications Generic Name Dose Route Start Last Admin Trade Name Freq PRN Reason Stop Dose Admin Acetaminophen 650 mg 10/21/19 16:03 10/22/19 09:12 Tylenol PO 650 mg Q4H PRN Administration Headache/Fever/Mild Pain (1-3) Albuterol/Ipratropium 3 ml 10/26/19 22:30 10/27/19 14:08 Duoneb NEB 3 ml [id number] BONITA Administration Amlodipine Besylate 10 mg 10/23/19 09:00 10/27/19 09:35 Norvasc PO 10 mg DAILY BONITA Administration Aspirin 81 mg 10/22/19 09:00 10/27/19 09:34 Ecotrin PO 81 mg DAILY BONITA Administration Atorvastatin Calcium 40 mg 10/21/19 21:00 10/26/19 20:25 Lipitor PO 40 mg HS BONITA Administration Buspirone HCl 5 mg 10/22/19 09:00 10/27/19 09:34 Buspar PO 5 mg BID BONITA Administration Carvedilol 18.75 mg 10/27/19 08:00 10/27/19 09:34 Coreg PO 18.75 mg BID-WM BONITA Administration Dicyclomine HCl 10 mg 10/22/19 21:00 10/27/19 09:33 Bentyl PO 10 mg BID BONITA Administration Enoxaparin Sodium 40 mg 10/22/19 09:00 10/27/19 09:35 Lovenox SC 40 mg 0900 BONITA Administration Escitalopram Oxalate 20 mg 10/22/19 09:00 10/27/19 09:36 Lexapro PO 20 mg DAILY BONITA Administration Famotidine 20 mg 10/23/19 09:00 10/27/19 09:36 Pepcid PO Not Given DAILY BONITA Guaifenesin 600 mg 10/22/19 21:00 10/27/19 09:36 Mucinex PO 600 mg Q12HR BONITA Administration Sodium Chloride 1,000 mls @ 100 mls/hr 10/23/19 08:29 10/26/19 22:32 Normal Saline 0.9% IV 1,000 mls .Q10H BONITA Administration Insulin Glargine 15 units/ 0.15 mls @ 0 mls/hr 10/25/19 09:00 10/27/19 09:36 Miscellaneous Medication SC 0.15 mls QAM BONITA Administration Insulin Human Lispro 0 units 10/21/19 16:06 10/27/19 11:50 Humalog SC 4 unit .MODERATE SLIDING SC PRN Administration Moderate Correctional Scale Melatonin 9 mg 10/21/19 22:53 10/21/19 23:26 Melatonin PO 9 mg HS PRN Administration Insomnia Methylprednisolone Sodium Succinate 20 mg 10/26/19 23:59 10/27/19 11:49 Solu-Medrol IVP 20 mg Q6HR BONITA Administration Montelukast Sodium 10 mg 10/23/19 09:00 10/27/19 09:35 Singulair PO 10 mg DAILY BONITA Administration Pantoprazole Sodium 40 mg 10/22/19 09:00 10/27/19 09:34 Protonix PO 40 mg DAILY BONITA Administration Saccharomyces Boulardii 250 mg 10/22/19 09:00 10/27/19 09:35 Florastor PO 250 mg DAILY BONITA Administration Senna/Docusate Sodium 2 tab 10/21/19 16:03 10/24/19 11:35 Senokot S PO 2 tab BIDPRN PRN Administration Constipation Sodium Chloride 10 ml 10/21/19 18:24 10/25/19 09:12 Flush - Normal Saline IVF 10 ml PRN PRN Administration Saline Flush Sterile Water 1 ml 10/23/19 08:54 10/26/19 05:16 Bacteriostatic Water FS 1 ml PRN PRN Administration RECONSTITUTION - Exam General Appearance: NAD, awake alert Neck: supple, symmetric Heart: RRR, normal peripheral pulses Respiratory: wheezes Gastrointestinal: soft, non-tender Musculoskeletal: no muscle wasting Psychiatric: normal affect, normal behavior Hosp A/P - Plan - Assessment (1) COPD with exacerbation Code(s): J44.1 - CHRONIC OBSTRUCTIVE PULMONARY DISEASE W (ACUTE) EXACERBATION Status: Acute (2) Acute on chronic respiratory failure with hypoxia Code(s): J96.21 - ACUTE AND CHRONIC RESPIRATORY FAILURE WITH HYPOXIA Status: Acute (3) HTN (hypertension) Code(s): I10 - ESSENTIAL (PRIMARY) HYPERTENSION Status: Chronic (4) Diabetes mellitus type 2 in nonobese Code(s): E11.9 - TYPE 2 DIABETES MELLITUS WITHOUT COMPLICATIONS Status: Chronic (3) Tobacco abuse Code(s): Z72.0 - TOBACCO USE Status: Chronic (6) Hyperkalemia Code(s): E87.5 - HYPERKALEMIA Status: Resolved (7) Atrial fibrillation Code(s): I48.91 - UNSPECIFIED ATRIAL FIBRILLATION Status: Ruled out Qualifiers: Atrial fibrillation type: paroxysmal Qualified Code(s): I48.0 - Paroxysmal atrial fibrillation (8) Acute kidney injury Status: Acute - Plan Pt clinically improving, in IMCU. Continue oxygen bronchodilators. Switched to oral steroids. SISSY resolved. No evidence of a. fib, per cardiology service.
[2019-10-27] MEDS: Sodium Chloride 0.9% 1,000 ML IV SCH (19:14)
[2019-10-27] MEDS: Atorvastatin Calcium 40 MG TAB PO SCH (20:29)
[2019-10-28] MEDS: guaiFENesin ER 600 MG TAB PO SCH ×2 (08:14→20:31)
[2019-10-28] MEDS: Amlodipine 10 MG TAB PO SCH (08:14)
[2019-10-28] MEDS: Saccharomyces boulardii 250 MG CAP PO SCH (08:14)
[2019-10-28] MEDS: busPIRone HCl 5 MG TAB PO SCH ×2 (08:14→20:31)
[2019-10-28] MEDS: Aspirin 81 mg Enteric Coated Tablet PO SCH (08:14)
[2019-10-28] MEDS: Carvedilol 6.25 MG TAB PO SCH ×2 (08:15→16:29)
[2019-10-28] MEDS: Dicyclomine 10 MG CAP PO SCH ×2 (08:15→20:31)
[2019-10-28] MEDS: Insulin Glargine 15 UNITS in Pre-Filled Syringe 1 EACH SC SCH (08:15)
[2019-10-28] MEDS: Montelukast Sodium 10 mg Tablet PO SCH (08:15)
[2019-10-28] MEDS: Escitalopram Oxalate 20 mg Tablet PO SCH (08:15)
[2019-10-28] MEDS: predniSONE 20 MG TAB PO SCH (08:15)
[2019-10-28] MEDS: Enoxaparin Sodium 40 MG/0.4 ML SYRINGE SC SCH (08:16)
[2019-10-28] MEDS: Famotidine 20 MG TAB PO SCH (08:41)
[2019-10-28] MEDS ORDERED: Guaifenesin DM 100-10/5 ML UDCUP PO PRN (12:10)
--- NOTE | 2019-10-28 13:22 | PDOC.HOSPP ---
- Subjective Encounter Date: 10/28/19 Encounter Time: 09:20 Subjective: Pt seen for followup re: chronic obstructive pulmonary disease exacerbation. Feels better. - Objective Vital Signs & Weight: Vital Signs (12 hours) Temp Pulse Resp BP Pulse Ox 10/28/19 11:22 98.1 F 10/28/19 10:28 80 20 97 10/28/19 08:15 160/78 H 10/28/19 08:14 81 156/89 H 10/28/19 08:00 99 10/28/19 07:23 97.8 F 10/28/19 07:12 81 29 H 100 10/28/19 04:00 97.2 F L 10/28/19 02:43 70 16 97 Weight Weight 148 lb 9.6 oz Most Recent Monitor Data Heart Rate from ECG 102 NIBP 156/89 NIBP BP-Mean 111 Respiration from ECG 36 SpO2 81 I&O: 10/27/19 10/28/19 10/29/19 06:59 06:59 06:59 Intake Total 3464 1050 Output Total 2475 1625 Balance 989 -575 Result Diagrams: 10/27/19 03:09 10/27/19 03:09 Additional Labs: Accuchecks 10/28/19 10/28/19 10/27/19 10:41 06:15 20:32 POC Glucose 166 H 128 H 309 H 10/27/19 16:12 POC Glucose 201 H labs and MARs reviewed by ne Hospitalist ROS - Review of Systems Respiratory: denies: cough, shortness of breath, hemoptysis, pleuritic pain, wheezing Cardiovascular: denies: chest pain, palpitations, orthopnea, paroxysmal noc. dyspnea, edema, light headedness, other - Medication Medications: Active Medications Generic Name Dose Route Start Last Admin Trade Name Freq PRN Reason Stop Dose Admin Acetaminophen 650 mg 10/21/19 16:03 10/22/19 09:12 Tylenol PO 650 mg Q4H PRN Administration Headache/Fever/Mild Pain (1-3) Albuterol/Ipratropium 3 ml 10/26/19 22:30 10/28/19 10:28 Duoneb NEB 3 ml [id number] [facility] Administration Amlodipine Besylate 10 mg 10/23/19 09:00 10/28/19 08:14 Norvasc PO 10 mg DAILY [facility] Administration Aspirin 81 mg 10/22/19 09:00 10/28/19 08:14 Ecotrin PO 81 mg DAILY [facility] Administration Atorvastatin Calcium 40 mg 10/21/19 21:00 10/27/19 20:29 Lipitor PO 40 mg HS [facility] Administration Buspirone HCl 5 mg 10/22/19 09:00 10/28/19 08:14 Buspar PO 5 mg BID [facility] Administration Carvedilol 18.75 mg 10/27/19 08:00 10/28/19 08:15 Coreg PO 18.75 mg BID-WM [facility] Administration Dicyclomine HCl 10 mg 10/22/19 21:00 10/28/19 08:15 Bentyl PO 10 mg BID [facility] Administration Enoxaparin Sodium 40 mg 10/22/19 09:00 10/28/19 08:16 Lovenox SC 40 mg 0900 [facility] Administration Escitalopram Oxalate 20 mg 10/22/19 09:00 10/28/19 08:15 Lexapro PO 20 mg DAILY [facility] Administration Famotidine 20 mg 10/23/19 09:00 10/28/19 08:41 Pepcid PO Not Given DAILY [facility] Guaifenesin 600 mg 10/22/19 21:00 10/28/19 08:14 Mucinex PO 600 mg Q12HR [facility] Administration Insulin Glargine 15 units/ 0.15 mls @ 0 mls/hr 10/25/19 09:00 10/28/19 08:15 Miscellaneous Medication SC Not Given QAM [facility] Insulin Human Lispro 0 units 10/21/19 16:06 10/27/19 20:30 Humalog SC 8 unit .MODERATE SLIDING SC PRN Administration Moderate Correctional Scale Melatonin 9 mg 10/21/19 22:53 10/21/19 23:26 Melatonin PO 9 mg HS PRN Administration Insomnia Montelukast Sodium 10 mg 10/23/19 09:00 10/28/19 08:15 Singulair PO 10 mg DAILY [facility] Administration Pantoprazole Sodium 40 mg 10/22/19 09:00 10/28/19 08:15 Protonix PO 40 mg DAILY [facility] Administration Prednisone 40 mg 10/28/19 08:00 10/28/19 08:15 Prednisone PO 40 mg [facility] Administration Saccharomyces Boulardii 250 mg 10/22/19 09:00 10/28/19 08:14 Florastor PO 250 mg DAILY [facility] Administration Senna/Docusate Sodium 2 tab 10/21/19 16:03 10/24/19 11:35 Senokot S PO 2 tab BIDPRN PRN Administration Constipation Sodium Chloride 10 ml 10/21/19 18:24 10/25/19 09:12 Flush - Normal Saline IVF 10 ml PRN PRN Administration Saline Flush Sterile Water 1 ml 10/23/19 08:54 10/26/19 05:16 Bacteriostatic Water FS 1 ml PRN PRN Administration RECONSTITUTION - Exam General Appearance: awake alert Eye: anicteric sclera ENT: moist mucosa Neck: supple Heart: RRR, no gallops Respiratory: CTAB Gastrointestinal: soft, non-tender Psychiatric: normal affect, normal behavior Hosp A/P - Plan - Assessment (1) COPD with exacerbation Code(s): J44.1 - CHRONIC OBSTRUCTIVE PULMONARY DISEASE W (ACUTE) EXACERBATION Status: Acute (2) Acute on chronic respiratory failure with hypoxia Code(s): J96.21 - ACUTE AND CHRONIC RESPIRATORY FAILURE WITH HYPOXIA Status: Acute (3) HTN (hypertension) Code(s): I10 - ESSENTIAL (PRIMARY) HYPERTENSION Status: Chronic (4) Diabetes mellitus type 2 in nonobese Code(s): E11.9 - TYPE 2 DIABETES MELLITUS WITHOUT COMPLICATIONS Status: Chronic (3) Tobacco abuse Code(s): Z72.0 - TOBACCO USE Status: Chronic (6) Hyperkalemia Code(s): E87.5 - HYPERKALEMIA Status: Resolved (7) Atrial fibrillation Code(s): I48.91 - UNSPECIFIED ATRIAL FIBRILLATION Status: Ruled out Qualifiers: Atrial fibrillation type: paroxysmal Qualified Code(s): I48.0 - Paroxysmal atrial fibrillation (8) Acute kidney injury Status: Acute - Plan Pt clinically improved. Transfer to floor. Continue oxygen, bronchodilators and oral steroids. Ambulate patient SISSY resolved. No evidence of a. fib, per cardiology service.
--- NOTE | 2019-10-28 14:34 | PRG ---
DATE OF SERVICE: 10/27/2019 SUBJECTIVE: Tess Paz was coughing more last night. She is a little nervous about going home. OBJECTIVE: VITAL SIGNS: Stable. She is afebrile. Heart rate is 80, respiratory rate is 20, oximetry is 97% on 2 L. She has oxygen at home. LUNGS: Remarkable for end-expiratory wheezes. HEART: Regular rhythm. ABDOMEN: Soft. IMPRESSION: Chronic obstructive pulmonary disease exacerbation. We will try suppressing her cough a little more, and hopefully, we can get her discharged first thing in the morning. Job ID: [id number] MTDD
[2019-10-28] MEDS: Benzonatate 100 MG CAP PO SCH ×2 (16:30→20:31)
[2019-10-28] MEDS: HumaLOG 300 UNITS/3 ML VIAL SC PRN (17:12)
[2019-10-28] MEDS: Atorvastatin Calcium 40 MG TAB PO SCH (20:31)
[2019-10-29] MEDS: ALPRAZolam 0.25 MG TAB PO PRN ×3 (01:06→23:14)
[2019-10-29] MEDS: HumaLOG 300 UNITS/3 ML VIAL SC PRN ×3 (05:41→18:08)
[2019-10-29] MEDS: predniSONE 20 MG TAB PO SCH (08:54)
[2019-10-29] MEDS: Escitalopram Oxalate 20 mg Tablet PO SCH (08:55)
[2019-10-29] MEDS: Benzonatate 100 MG CAP PO SCH ×3 (08:55→20:33)
[2019-10-29] MEDS: Saccharomyces boulardii 250 MG CAP PO SCH (08:55)
[2019-10-29] MEDS: busPIRone HCl 5 MG TAB PO SCH ×2 (08:55→20:32)
[2019-10-29] MEDS: Famotidine 20 MG TAB PO SCH (08:55)
[2019-10-29] MEDS: Montelukast Sodium 10 mg Tablet PO SCH (08:55)
[2019-10-29] MEDS: guaiFENesin ER 600 MG TAB PO SCH ×2 (08:56→20:33)
[2019-10-29] MEDS: Amlodipine 10 MG TAB PO SCH (08:56)
[2019-10-29] MEDS: Carvedilol 6.25 MG TAB PO SCH ×2 (08:56→17:56)
[2019-10-29] MEDS: Dicyclomine 10 MG CAP PO SCH ×2 (08:57→20:32)
[2019-10-29] MEDS: Aspirin 81 mg Enteric Coated Tablet PO SCH (08:57)
[2019-10-29] MEDS: Enoxaparin Sodium 40 MG/0.4 ML SYRINGE SC SCH (08:57)
[2019-10-29] MEDS: Insulin Glargine 15 UNITS in Pre-Filled Syringe 1 EACH SC SCH (08:58)
--- NOTE | 2019-10-29 10:03 | PRG ---
DATE OF SERVICE: 10/29/2019 SUBJECTIVE: Tess Paz says she is ready to go home. OBJECTIVE: VITAL SIGNS: She is afebrile, heart rate is 92, blood pressure 144/62, oximetry is 95% on 2 L. LUNGS: Clear. HEART: Regular rhythm. ABDOMEN: Soft. There is no new lab other than glucoses. I have recommended 40 of prednisone for 4 days, 20 mg for 8 days, 10 mg for 8 days. Smoking cessation has been counseled every day. She has a nebulizer at home. She has oxygen at home. She will need to watch her blood glucoses. Job ID: [id number]
--- NOTE | 2019-10-29 10:08 | PRG ---
DATE OF SERVICE: 10/27/2019 SUBJECTIVE: Tess Paz walk in [place] today. She is better. OBJECTIVE: VITAL SIGNS: Afebrile, blood pressure 160/78, heart rate in the 80s, respiratory HEART: IMPRESSION: Chronic obstructive pulmonary disease, patient slowly improving. My opinion to 4th floor. She is encouraged to fluids. She will be on prednisone Job ID: [id number]
[2019-10-29] MEDS: Atorvastatin Calcium 40 MG TAB PO SCH (20:32)
[2019-10-29] MEDS ORDERED: HumaLOG 300 UNITS/3 ML VIAL SC PRN (21:25)
--- NOTE | 2019-10-30 00:43 | DIS ---
DATE OF ADMISSION: 10/21/2019 DATE OF DISCHARGE: 10/29/2019 DISCHARGE DIAGNOSES: As of the following; 1. Chronic obstructive pulmonary disease exacerbation. 2. Acute on chronic respiratory failure with hypoxia. 3. Hypertension. 4. Diabetes. 5. Tobacco abuse. 6. Hyperkalemia. 7. Atrial fibrillation, paroxysmal. No episodes in the hospital. 8. Acute kidney injury, resolved. HOSPITAL COURSE: The patient is a very pleasant 74-year-old female, who initially presented to the hospital with complaints of worsening shortness of breath. Please look at my H and P for further details. She was found to be hypoxic and at this time, she was started on DuoNebs, steroids and was admitted into the hospital. Pulmonology was consulted. She then decompensated and had to be placed on BiPAP. Throughout the hospital, she continued to improve. She also had an echocardiogram and was evaluated by Cardiology for possible atrial fibrillation. Her echo indicated EF of 55% to 60% with [id number] mitral regurgitation. No evidence of mitral valve stenosis and [id number] tricuspid regurgitation. She was seen as I mentioned by Cardiology, who did not think she was in atrial fibrillation. She did have a pacemaker at that time. Cardiology was consulted because she had sinus arrhythmia and sinus rhythms with paroxysmal atrial contractions. There was no evidence of atrial fibrillation. The patient again continued to improve. She was then discharged on some oxygen. HOME MEDICATIONS: As of the following; 1. She will be on escitalopram 20 mg daily. 2. Ranitidine 150 mg daily. 3. Singulair 10 mg daily. 4. Albuterol as needed. 5. Torsemide 20 mg daily. 6. Omeprazole 20 mg twice a day. 7. Lisinopril 2.5 daily. 8. Bentyl 10 mg twice a day. 9. Atorvastatin 40 mg daily. 10. Aspirin 81 mg daily. 11. Norvasc 10 mg daily. 12. BuSpar 5 mg twice a day. 13. Melatonin 10 mg at bedtime. 14. Prednisone taper. 15. DuoNebs as needed. 16. Carvedilol 18.75 twice a day. 17. Xanax as needed. 18. Also, she is on two reflux medications, this is from her home. PHYSICAL EXAMINATION: VITAL SIGNS: Temperature 97.8, pulse 65, respirations 18, oxygen saturation 98% on 2 L, and blood pressure 120/59. GENERAL: She is awake, alert, and oriented x3. Does not appear in any distress. CV: S1 and S2 present. No murmurs, rubs, or gallops. LUNGS: Mild rhonchi heard bilaterally. ABDOMEN: Soft and nontender. Bowel sounds are present x2. EXTREMITIES: No edema. Pedal pulses are present x2. DISCHARGE INSTRUCTIONS: Again, she will be discharged home. She will follow up with Pulmonology and also with her primary. [place] and I have asked her to get a primary care doctor since her daughter lives here and she does spend some time in [place]. She is normally from [place]. TIME SPENT: 35 minutes was spent discharging this patient. Job ID: [id number]
[2019-10-30] MEDS: Dicyclomine 10 MG CAP PO SCH (09:30)
[2019-10-30] MEDS: Famotidine 20 MG TAB PO SCH (09:30)
[2019-10-30] MEDS: Saccharomyces boulardii 250 MG CAP PO SCH (09:30)
[2019-10-30] MEDS: Escitalopram Oxalate 20 mg Tablet PO SCH (09:31)
[2019-10-30] MEDS: busPIRone HCl 5 MG TAB PO SCH (09:31)
[2019-10-30] MEDS: Amlodipine 10 MG TAB PO SCH (09:31)
[2019-10-30] MEDS: guaiFENesin ER 600 MG TAB PO SCH (09:31)
[2019-10-30] MEDS: Aspirin 81 mg Enteric Coated Tablet PO SCH (09:31)
[2019-10-30] MEDS: Benzonatate 100 MG CAP PO SCH (09:32)
[2019-10-30] MEDS: Carvedilol 6.25 MG TAB PO SCH (09:33)
[2019-10-30] MEDS: predniSONE 20 MG TAB PO SCH (09:33)
[2019-10-30] MEDS: Montelukast Sodium 10 mg Tablet PO SCH (09:33)
[2019-10-30] MEDS: Enoxaparin Sodium 40 MG/0.4 ML SYRINGE SC SCH (09:34)
[2019-10-30] MEDS: Insulin Glargine 15 UNITS in Pre-Filled Syringe 1 EACH SC SCH (09:34)
[2019-10-30 12:25] VITALS: BP 170/73; TEMP 97.8
== END 2019-10-30 12:41 | disposition home or self-care (01) | DRG 189 ==
LOC: ERS 13:55 → T4-A 16:00 → OBSVTOIN 16:00 → IMCU/EMU 10-22 16:57 → T4-A 10-28 20:54
PROVIDERS: ADMIT Internal Medicine; ATTEND Internal Medicine
DX: J96.21 Acute and chronic respiratory failure with hypoxia (principal); J44.1 Chronic obstructive pulmonary disease with (acute) exacerbation; N17.9 Acute kidney failure, unspecified; I10 Essential (primary) hypertension; F17.200 Nicotine dependence, unspecified, uncomplicated; I48.0 Paroxysmal atrial fibrillation; Z79.01 Long term (current) use of anticoagulants; E87.5 Hyperkalemia; I34.0 Nonrheumatic mitral (valve) insufficiency; E11.65 Type 2 diabetes mellitus with hyperglycemia
CPT/HCPCS: 36415; 36416; 71045; 80048; 80053; 81003; 82010; 82330; 82803; 82805; 83605; 83880; 85025; 87040; 87804; 93005; 93010; 93306; 94640; 94760; 96365; 96367; 96375; J0456; J0692; J0696; J1650; J1815; J2920; J3370; J3490; J7050; J7512; J7620

== ENCOUNTER 2019-11-05 11:11 | Emergency (ER) | payer MEDICARE ==
[2019-11-05 11:39] LABS: #Eosinphils 0.1 thou/uL (0.0-0.7); #Lymphocytes 1.7 thou/uL (1.20-3.40); #Monocytes 0.8 thou/uL (0.11-0.59); #Neutrophils 9.7 thou/uL (1.40-6.50); %Basophils 0.4 % (0.0-1.0); %Lymphocytes 13.5 % (21.0-51.0); %Monocytes 6.4 % (0.0-10.0); %Neutrophils 78.7 % (42.0-75.0); Hemoglobin 9.9 g/dL (12.0-16.0); Mean Corpuscular HGB CONC 32.7 g/dL (32.0-36.0); Mean Corpuscular Hemoglobin 31.6 pg (27.0-31.0); Mean Corpuscular Volume 96.7 fL (78.0-98.0); Mean Platelet Volume 6.7 fL (7.4-10.4); Platelet Count 370 thou/uL (130-400); RBC Distribution Width 11.6 % (11.5-14.5); Red Blood Cell (RBC) Count 3.13 mill/uL (4.20-5.40); White Blood Cell (WBC) Count 12.3 thou/uL (4.8-10.8)
[2019-11-05 12:03] LABS: ALT (SGPT) 12 U/L (8-55); AST (SGOT) 5 U/L (5-34); Albumin 3.7 g/dL (3.4-4.8); Alkaline Phosphatase 90 U/L (40-110); Anion Gap 12 mmol/L (10-20); BUN (Urea Nitrogen) 24 mg/dL (9.8-20.1); Bilirubin, Total 0.4 mg/dL (0.2-1.2); Calc. Creatinine Clearance 0 mL/min (70-130); Carbon Dioxide 32 mmol/L (23-31); Chloride 93 mmol/L (98-107); Estimated GFR-MDRD 29; Globulin 1.9 g/dL (2.4-3.5); Glucose 431 mg/dL (83-110); Magnesium 1.6 mg/dL (1.6-2.6); Phosphorus 3.1 mg/dL (2.3-4.7); Potassium 4.9 mmol/L (3.5-5.1); Protein, Total 5.6 g/dL (6.0-8.3); Sodium 132 mmol/L (136-145)
[2019-11-05] MEDS ORDERED: Insulin Regular 300 UNITS/3 ML VIAL ONE (12:52)
[2019-11-05 13:14] LABS: Bacteria/HPF 3+ HPF (None Seen); Bilirubin Negative (Negative); Blood, Urine 2+ (Negative); Clarity Turbid (Clear); Glucose, Urine (Dipstick) Greater than 1000 mg/dL (Negative); Leukocyte 500 Leu/uL (Negative); Nitrite Negative (Negative); Protein, Urine (Dipstick) 20 mg/dL (Neg-Trace); Urobilinogen Normal mg/dL (Less than 2); WBC/HPF 21-50 HPF (0-3)
[2019-11-05] MEDS ORDERED: cefTRIAXone\\ROCEPHIN 1 GM VIAL ONE (13:35)
--- NOTE | 2019-11-08 11:03 | EKG ---
Test Reason : Blood Pressure : / mmHG Vent. Rate : 063 BPM Atrial Rate : 064 BPM P-R Int : 000 ms QRS Dur : 072 ms QT Int : 432 ms P-R-T Axes : 000 043 020 degrees QTc Int : 442 ms Electronic atrial pacemaker Confirmed by KRISTINA WADE MD ([id number]), commissioning editor MANISHA MELENDREZ ([id number]) on 11/08/2019 11:03:05 AM Referred By: Confirmed By:KRISTINA WADE MD
== END 2019-11-05 15:16 | disposition home or self-care (01) ==
LOC: ERS 11:11
DX: E11.65 Type 2 diabetes mellitus with hyperglycemia (principal); N39.0 Urinary tract infection, site not specified; E78.5 Hyperlipidemia, unspecified; I10 Essential (primary) hypertension; J44.9 Chronic obstructive pulmonary disease, unspecified; F41.9 Anxiety disorder, unspecified; F32.9 Major depressive disorder, single episode, unspecified; F17.210 Nicotine dependence, cigarettes, uncomplicated; D64.9 Anemia, unspecified; Z79.899 Other long term (current) drug therapy; Z79.82 Long term (current) use of aspirin; Z79.51 Long term (current) use of inhaled steroids; Z79.84 Long term (current) use of oral hypoglycemic drugs
CPT/HCPCS: 36415; 36416; 80053; 81003; 81015; 82010; 83735; 84100; 84484; 85025; 93005; 94760; J0696; J1815

== ENCOUNTER 2020-01-08 09:06 | Outpatient (CLI) | payer MEDICARE ==
--- NOTE | 2020-01-08 09:28 | RAD ---
EXAM: Two views chest PROVIDED CLINICAL HISTORY: Dyspnea COMPARISON: 10/22/2019 FINDINGS: Dual lead left subclavian cardiac pacemaking device is noted in place. Mild chronic lung changes are seen. No consolidation or pleural fluid is evident. Vascular calcifications are seen in the thoracic aorta. Chest is stable compared to prior study. IMPRESSION: Stable chest without evidence of an acute cardiopulmonary process..
== END 2020-01-08 09:07 | disposition home or self-care (01) ==
LOC: BICRAD 09:06
PROVIDERS: ATTEND Internal Medicine Critical Care Medicine
DX: R06.00 Dyspnea, unspecified (principal)
CPT/HCPCS: 71046

== ENCOUNTER 2020-02-25 12:04 | Emergency (ER) | payer MEDICARE, OTHER ==
--- NOTE | 2020-02-25 12:30 | RAD ---
EXAM: Single view of the chest HISTORY: Cough and chest tightness COMPARISON: 10/22/2019 FINDINGS: Single view of the chest shows a normal sized cardiomediastinal silhouette. Atheroscleroti c calcifications are seen in the aorta. The pacemaker is unchanged in position. There is no evidence of consolidation, mass, or pleural effusion. The bones are unremarkable. IMPRESSION: No evidence of acute cardiopulmonary disease
[2020-02-25 12:53] LABS: #Basophils 0.1 thou/uL (0.0-0.2); #Eosinphils 0.3 thou/uL (0.0-0.7); #Lymphocytes 1.7 thou/uL (1.20-3.40); #Monocytes 0.6 thou/uL (0.11-0.59); #Neutrophils 5.2 thou/uL (1.40-6.50); %Eosinophils 4.3 % (0.0-10.0); %Lymphocytes 21.5 % (21.0-51.0); %Neutrophils 65.3 % (42.0-75.0); Hemoglobin 9.1 g/dL (12.0-16.0); Mean Corpuscular HGB CONC 31.7 g/dL (32.0-36.0); Mean Corpuscular Hemoglobin 27.9 pg (27.0-31.0); Mean Corpuscular Volume 88.1 fL (78.0-98.0); Mean Platelet Volume 7.2 fL (7.4-10.4); Platelet Count 418 thou/uL (130-400); RBC Distribution Width 15.2 % (11.5-14.5); Red Blood Cell (RBC) Count 3.28 mill/uL (4.20-5.40); White Blood Cell (WBC) Count 7.9 thou/uL (4.8-10.8)
[2020-02-25 13:17] LABS: ALT (SGPT) 12 U/L (8-55); AST (SGOT) 14 U/L (5-34); Alkaline Phosphatase 81 U/L (40-110); Anion Gap 13 mmol/L (10-20); BUN (Urea Nitrogen) 30 mg/dL (9.8-20.1); Bilirubin, Total 0.2 mg/dL (0.2-1.2); Calc. Creatinine Clearance 0 mL/min (70-130); Carbon Dioxide 26 mmol/L (23-31); Chloride 105 mmol/L (98-107); Estimated GFR-MDRD 35; Globulin 2.6 g/dL (2.4-3.5); Glucose 92 mg/dL (83-110); Potassium 4.3 mmol/L (3.5-5.1); Protein, Total 6.6 g/dL (6.0-8.3); Sodium 140 mmol/L (136-145)
[2020-02-25] MEDS ORDERED: Dexamethasone 10 MG/ML VIAL ONE (13:44)
[2020-02-26 15:27] LABS: SARS-CoV-2 MS2 Positive; SARS-CoV-2 N Gene Negative; SARS-CoV-2 S Gene Negative; SARS-CoV-2 orf1ab Negative
== END 2020-02-25 13:53 | disposition home or self-care (01) ==
LOC: ERS 12:04
DX: J44.9 Chronic obstructive pulmonary disease, unspecified (principal); Z20.828 Contact with and (suspected) exposure to other viral communicable diseases; F41.9 Anxiety disorder, unspecified; F32.9 Major depressive disorder, single episode, unspecified; F17.210 Nicotine dependence, cigarettes, uncomplicated; Z79.899 Other long term (current) drug therapy
CPT/HCPCS: 71045; 80053; 83605; 85025; 99285; U0003; 36415; 87635; J1100